=== PATIENT | female | born 1960 | race Hispanic/Latino ===

== ENCOUNTER 2021-01-04 02:02 | Emergency (ER) | payer SELFPAY ==
--- OUTSIDE RECORDS SUMMARY | 2021-01-04 02:04 | XMS REPORT | Continuity of Care Document ---
:1960 Author Organization [facility] t Address [address] [place] [address] Care Team Providers Name Role Phone Cindi Ascencio PTA Attending Clinician Unavailable Geraldo Arroyo PT Attending Clinician Unavailable Markus Chapman MD Attending Clinician Problems This patient has no known problems. Allergies, Adverse Reactions, Alerts This patient has no known allergies or adverse reactions. Medications This patient has no known medications. Procedures This patient has no known procedures. Encounters Start End Encounter Admission Attending Care Care Encounter Source Date/Time Date/Time Type Type Clinicians Facility Department ID 2020-12-23 2020-12-23 Ancillary THO Ascencio [id number] 10:30:34 11:15:04 Visit Stephania Malone [id number] Neeraj [id number] [facility] [phone] [facility] [address] [facility] 2020-12-16 2020-12-18 Ancillary Geraldo MIMARION [id number] 13:02:06 08:04:55 Visit Kira Arroyo [id number] Katie Pickard [id number] Pro[facility] [phone] [facility] [address] [facility] 2020-12-14 2020-12-14 Office THO Chapman [id number] 01 13:22:18 13:52:43 Visit Nitin KIRKLAND [id number] [facility] [id number] CENTER AT [phone] [address] Results This patient has no known results.
[2021-01-04] MEDS ORDERED: KETOROLAC 30 MG/ML INJ ONE (02:33)
[2021-01-04] MEDS ORDERED: ONDANSETRON 4 MG/2 ML VIAL ONE (02:45)
[2021-01-04] MEDS ORDERED: KETAMINE HCL 500 MG/5 ML VIAL ONE (02:45)
[2021-01-04] MEDS ORDERED: NA CHLORIDE 0.9% 1,000 ML ONE (02:46)
[2021-01-04] MEDS ORDERED: propofoL 200 MG/20 ML VIAL IV ONE (02:50)
[2021-01-04 03:10] LABS: Absolute Lymphocytes (CBC) 1.3 K/uL (0.7-4.9); Basophils % 0.2 % (0-1.3); Hematocrit 37.8 % (36.0-45.0); Lymphocytes % 6.5 % (15.3-44.8); MPV 10.8 fL (7.6-11.3); RBC Red Blood Cell Count 4.35 M/uL (3.86-4.86)
[2021-01-04 03:19] LABS: ALT/SGPT 14 U/L (12-78); AST/SGOT 27 U/L (15-37); Albumin 3.9 g/dL (3.4-5.0); Alkaline Phosphatase 87 U/L (45-117); BUN Blood Urea Nitrogen 11 mg/dL (7-18); Bicarbonate 27 mmol/L (21-32); Bilirubin Total 0.9 mg/dL (0.2-1.0); Glucose Level 135 mg/dL (74-106); Potassium 3.8 mmol/L (3.5-5.1); Protein, Total 7.7 g/dL (6.4-8.2); Sodium Level 135 mmol/L (136-145)
--- NOTE | 2021-01-04 03:52 | EDPHYS ---
Physician Documentation [facility] Name: Yomaira Duran Age: 60 yrs Sex: Female : 1960 Arrival Date: 01/04/2021 Time: 02:03 Bed 4 Private MD: ED Physician Alan Rosario Historical: - Allergies: 01/04 02:08 meloxicam; wh - PMHx: 02:08 Diabetes - NIDDM; Hypertension; Depression; wh - Immunization history:: Adult Immunizations unknown. - Immunization history: Last tetanus immunization: unknown. - Social history:: Smoking status: unknown. Vital Signs: 02:19 BP 155 / 82; Pulse 80; Resp 17; Pulse Ox 100% on R/A; rv 02:19 Temp 98.7(O); rv 03:14 BP 122 / 88; Pulse 69; Resp 14; Pulse Ox 100% on 2 lpm NC; rv 04:00 BP 146 / 78; Pulse 69; Resp 15; Pulse Ox 100% on R/A; rv 04:00 BP 119 / 67; Pulse 77; Resp 15; Pulse Ox 96% on R/A; rv 05:00 BP 117 / 80; Pulse 80; Resp 15; Pulse Ox 97% on R/A; rv Talha Coma Score: 02:07 Eye Response: spontaneous(4). Verbal Response: oriented(5). Motor Response: obeys wh commands(6). Total: 15. 04:00 Eye Response: spontaneous(4). Verbal Response: oriented(5). Motor Response: obeys rv commands(6). Total: 15. Trauma Score (Adult): 02:07 Eye Response: spontaneous(1); Verbal Response: oriented(1); Motor Response: obeys wh commands(2); Systolic BP: > 89 mm Hg(4); Respiratory Rate: 10 to 29 per min(4); Talha Score: 15; Trauma Score: 12 MDM: 02:06 Patient medically screened. 01/04 02:22 Order name: Alcohol Level; Complete Time: 03:27 01/04 02:22 Order name: CMP; Complete Time: 03:27 01/04 03:28 Interpretation: Normal except: NA 135; GLUC 135; CRE 0.47. 01/04 02:04 Order name: Shoulder Right (2 View) XRAY tw4 01/04 02:04 Order name: Ankle Left 2 View XRAY tw4 01/04 02:22 Order name: CBC with Diff tw4 01/04 03:28 Interpretation: Normal except: WBC 19.30; LYM% 6.5; RACHANA% 87.1; NEUT A 16.8. tw4 01/04 03:25 Order name: Manual Differential EDMS 01/04 02:04 Order name: CT Head C Spine tw4 01/04 02:04 Order name: IV Saline Lock; Complete Time: 02:14 tw4 01/04 02:04 Order name: Conscious Sedation; Complete Time: 02:20 tw4 Administered Medications: 02:20 Drug: Ketorolac 15 mg Route: IVP; Site: left antecubital; rv 03:15 Follow up: Response: No adverse reaction rv 02:40 Drug: Zofran (Ondansetron) 4 mg Route: IVP; Site: left antecubital; rv 03:15 Follow up: Response: No adverse reaction rv 02:43 Drug: Propofol 100 mg Route: IVP; Site: left antecubital; rv 03:15 Follow up: Response: No adverse reaction rv Disposition: 01/04/21 03:52 Discharged to Home. Impression: Dislocation of other parts of right shoulder girdle, Contusion of other part of head, Sprain of ankle. - Condition is Stable. - Discharge Instructions: Ankle Sprain, Contusion, Head Injury, Adult, [id number]. - Medication Reconciliation Form, Thank You Letter, Antibiotic Education, Prescription Opioid Use form. - Follow up: Private Physician; When: Upon discharge from the Emergency Department; Reason: Recheck today's complaints, Continuance of care, Re-evaluation by your physician. - Problem is new. - Symptoms have improved. Addendum: 02/05/2021 18:53 Addendum: Pt is a 60 year female that states that she fell and twisted her ankle and t w4 injured her right shoulder. Pt states that she is having difficulty moving her shoulder and has had difficulty walking. Pt states that she needs to ambulate with assistance. Pt admits to drinking heavily this evening. Addendum: ROS: ALL other systems negative except as marked. Ext: positive for deformity shoulder, decreased ROM. positive pain ankle left, decreased ROM. Addendum: PE: General:well developed well nourished pt in NAD HEENT: PERRLA,EOMI Chest: CTAB, nl BS CV:RRR, S1, S2 no murmurs no gallops Ab: ND,NT nl BS Ext: right shoulder deformity , decreased ROM, no pulse deficit. 19:04 Addendum: Procedure:pt underwent moderate sedation, propofol used, Reduction completed t w4 using traction manipulation Xray confirms reduction. Signatures: Dispatcher [employer] EDMS Radha Miller, RN RN Alan Rosario MD MD tw4 Rome Ybarra RN RN rv Corrections: (The following items were deleted from the chart) 01/04 05:57 03:52 01/04/2021 03:52 Discharged to Home. Impression: Dislocation of other parts of rv right shoulder girdle; Contusion of other part of head; Sprain of ankle. Condition is Stable. Forms are Medication Reconciliation Form, Thank You Letter, Antibiotic Education, Prescription Opioid Use. Follow up: Private Physician; When: Upon discharge from the Emergency Department; Reason: Recheck today's complaints, Continuance of care, Re-evaluation by your physician. Problem is new. Symptoms have improved. tw4
--- NOTE | 2021-01-04 03:52 | ER ---
Nurse's Notes [facility] Name: Yomaira Duran Age: 60 yrs Sex: Female : 1960 Arrival Date: 01/04/2021 Time: 02:03 Bed 4 Private MD: Diagnosis: Dislocation of other parts of right shoulder girdle;Contusion of other part of head;Sprain of ankle Presentation: 01/04 02:04 Chief complaint: Patient states: fell and rolled her left ankle and hit her right wh shoulder. Pt C/O right shoulder pain. Denies LOC and not taking blood thinners. Pt admitted to having alcohol. Care prior to arrival: None. Mechanism of Injury: Fall. Trauma event details: Injury occurred in the [facility]. 02:04 Acuity: ZAHIRA 3 02:04 Method Of Arrival: Wheelchair 02:07 Coronavirus screen: Client denies travel out of the [place] in the last 14 days. Ebola wh Screen: Patient negative for fever greater than or equal to 101.5 degrees Fahrenheit, and additional compatible Ebola Virus Disease symptoms Patient denies exposure to infectious person. Initial Sepsis Screen: Does the patient meet any 2 criteria?. Risk Assessment: Do you want to hurt yourself or someone else? Patient reports no desire to harm self or others. Onset of symptoms was January 04, 2021. 02:18 Initial Sepsis Screen: Does the patient have a suspected source of infection? No. rv Patient's initial sepsis screen is negative. Trauma Activation: Physician: ED Physician; Name: ; Notified At: 02:05; Arrived At: Physician: General Surgeon; Name: ; Notified At: 02:05; Arrived At: Physician: Radiology; Name: ; Notified At: 02:05; Arrived At: Physician: Respiratory; Name: ; Notified At: 02:05; Arrived At: Physician: Lab; Name: ; Notified At: 02:05; Arrived At: Historical: - Allergies: 02:08 meloxicam; wh - PMHx: 02:08 Diabetes - NIDDM; Hypertension; Depression; wh - Immunization history:: Adult Immunizations unknown. - Immunization history: Last tetanus immunization: unknown. - Social history:: Smoking status: unknown. Screenin:04 Abuse screen: Denies threats or abuse. Nutritional screening: No deficits noted. wh Tuberculosis screening: No symptoms or risk factors identified. Fall Risk None identified. Primary Survey: 02:05 NO uncontrolled hemorrhage observed. A: The patient is alert. Airway: patent. wh Breathing/Chest: Respiratory pattern: regular, Respiratory effort: spontaneous, unlabored, Chest inspection: symmetrical rise and fall of the chest. Circulation: Skin color: pink. Disability Alert. Exposure/Environment: All clothing and personal items were removed. Forensic evidence collection is not deemed to be indicated at this time. Items placed in patient belonging bag. Obvious injury(ies) are noted at this time: deformity in right shloulder. 03:15 Reassessment Breathing/Chest Respiratory pattern Regular. rv Assessment: 02:03 Reassessment: [facility] [phone]. 02:06 General: Appears in no apparent distress. uncomfortable, Behavior is listless, Smells wh of alcohol. Pain: Complains of pain in right shoulder. Neuro: Level of Consciousness is awake, alert, obeys commands, Oriented to person, place, time, situation. Cardiovascular: Capillary refill < 3 seconds Patient's skin is warm and dry. Respiratory: Airway is patent Respiratory effort is even, unlabored, Respiratory pattern is regular, symmetrical. GI: Abdomen is non-distended. : No signs and/or symptoms were reported regarding the genitourinary system. EENT: No signs and/or symptoms were reported regarding the EENT system. Derm: Skin is intact. Musculoskeletal: Range of motion: limited in right shoulder. 02:19 Reassessment: Family member gave verbal consent for conscious sedation. ea 05:55 Reassessment: PATIENT IS ALERT AWAKE AND COHERENT. WAS ABLE TO STAND UP ON HER OWN FROM rv THE STRETCHER AND TRANSFERRED TO WHEELCHAIR. DENIES PAIN AT THE MOMENT. DISCHARGED. Vital Signs: 02:19 BP 155 / 82; Pulse 80; Resp 17; Pulse Ox 100% on R/A; rv 02:19 Temp 98.7(O); rv 03:14 BP 122 / 88; Pulse 69; Resp 14; Pulse Ox 100% on 2 lpm NC; rv 04:00 BP 146 / 78; Pulse 69; Resp 15; Pulse Ox 100% on R/A; rv 04:00 BP 119 / 67; Pulse 77; Resp 15; Pulse Ox 96% on R/A; rv 05:00 BP 117 / 80; Pulse 80; Resp 15; Pulse Ox 97% on R/A; rv Bryan Coma Score: 02:07 Eye Response: spontaneous(4). Verbal Response: oriented(5). Motor Response: obeys wh commands(6). Total: 15. 04:00 Eye Response: spontaneous(4). Verbal Response: oriented(5). Motor Response: obeys rv commands(6). Total: 15. Trauma Score (Adult): 02:07 Eye Response: spontaneous(1); Verbal Response: oriented(1); Motor Response: obeys wh commands(2); Systolic BP: > 89 mm Hg(4); Respiratory Rate: 10 to 29 per min(4); Talha Score: 15; Trauma Score: 12 ED Course: 02:03 Patient arrived in ED. tw4 02:04 Patient maintains SpO2 saturation greater than 95% on room air. Thermoregulation: warm blanket given to patient. 02:05 Triage completed. wh 02:06 Alan Rosario MD is Attending Physician. tw4 02:13 Patient has correct armband on for positive identification. Bed in low position. Call light in reach. 02:13 Arm band placed on right wrist. Patient placed in an exam room, on a stretcher, on pulse oximetry. 02:14 Rome Ybarra, RN is Primary Nurse. rv 02:18 Inserted saline lock: 20 gauge in left antecubital area, using aseptic technique. rv 02:38 Ankle Left 2 View XRAY In Process Unspecified. EDMS 02:38 Shoulder Right (2 View) XRAY In Process Unspecified. EDMS 02:52 Assist provider with reduction of right shoulder using manipulation, Set up for rv procedure. Performed by Alan Rosario MD Immobilized with sling, Patient tolerated well. 03:12 CT Head C Spine In Process Unspecified. EDMS 04:05 IV discontinued, intact, bleeding controlled, No redness/swelling at site. Pressure rv dressing applied. Administered Medications: 02:20 Drug: Ketorolac 15 mg Route: IVP; Site: left antecubital; rv 03:15 Follow up: Response: No adverse reaction rv 02:40 Drug: Zofran (Ondansetron) 4 mg Route: IVP; Site: left antecubital; rv 03:15 Follow up: Response: No adverse reaction rv 02:43 Drug: Propofol 100 mg Route: IVP; Site: left antecubital; rv 03:15 Follow up: Response: No adverse reaction rv Output: 04:05 Urine: 0ml; Total: 0ml. rv Outcome: 03:52 Discharge ordered by MD. meyer 04:05 Discharged to home via wheelchair. rv 04:05 Condition: improved 04:05 Patient's length of stay in the Emergency Department was greater than 2 hours. waiting for ridePatient's length of stay extended due to 04:05 Discharge instructions given to patient, Instructed on discharge instructions, follow rv up and referral plans. Demonstrated understanding of instructions, follow-up care. 05:57 Patient left the ED. rv Signatures: Dispatcher [employer] EDMS Elodia Michelle RN RN ea Habalo, Winsy, RN RN wh Wadley, Terrence, MD MD twRome Tineo RN RN rv
[2021-01-04 04:02] LABS: Blood Morphology Comment NOT SEEN (NOT SEEN); Platelet Estimate ADEQ
--- NOTE | 2021-01-04 09:06 | RAD REPORT ---
EXAM DESCRIPTION: RAD - Ankle Left 2 View - 01/04/2021 2:38 am CLINICAL HISTORY: PAIN COMPARISON: No comparisons FINDINGS: Two-view portable left ankle examination performed. Lateral view has significant motion de gradation. No gross fracture deformity is seen. Fracture at the tip of the fibula cannot be excluded. A fracture in this location would not likely alter medical management. No other findings concerning for fracture on this limited examination. No joint effusion seen. No joint space narrowing. Lateral soft tissue swelling is present. IMPRESSION: No gross fracture deformity on this limited two-view ankle examination. Small fracture at the tip of the fibula cannot be excluded. This type of fracture would not likely al ter medical management.
--- NOTE | 2021-01-04 09:11 | RAD REPORT ---
EXAM DESCRIPTION: Shoulder Right 2 View - 01/04/2021 2:39 am CLINICAL HISTORY: fall, right shoulder pain COMPARISON: <Comparisons> TECHNIQUE: Internal and external rotation views of the right shoulder were obtained. FINDINGS: Dislocation of the humeral head is present medial and inferior to the bony glenoid. This i s typical for anterior dislocation. No fracture deformity seen. No AC joint abnormality identified. IMPRESSION: Anterior dislocation right humerus. No fracture identifiable.
--- NOTE | 2021-01-04 16:46 | RAD REPORT ---
EXAM DESCRIPTION: CT - [id number] - 01/04/2021 3:12 am CLINICAL HISTORY: PAIN COMPARISON: None. TECHNIQUE: CT Head and Cervical spine WO contrast on 01/04/2021 2:04 AM CDT This exam was performed according to our departmental dose-optimization program, which includes autom ated exposure control, adjustment of the mA and/or kV according to patient size and/or use of iterati ve reconstruction technique. FINDINGS: Brain: There is no acute hemorrhage, mass effect or midline shift. Sena-white differentiat ion is preserved. There is no hydrocephalus. There is no significant volume loss for age. The calvarium is intact. Orbits and globes are unremarkable. The paranasal sinuses are clear. Mastoid air cells are clear. Cervical Spine: There is no acute fracture. Alignment is anatomic. Disc spaces are maintained. Vertebral body heights are preserved. Soft tissues are unremarkable. IMPRESSION: No acute postraumatic findings. Electronically signed by: Satnam aPdilla MD 01/04/2021 3:25 AM CDT Due to temporary technical issues with the PACS/Fluency reporting system, reports are being signed by the in house radiologists without review as a courtesy to insure prompt reporting. The interpreting radiologist is fully responsible for the content of the report.
[2021-01-04 19:31] VITALS: TEMP 98.7
[2021-01-04 19:36] VITALS: BP 117/80; O2SAT 97
== END 2021-01-04 05:57 | disposition home or self-care (01) ==
LOC: ER 02:02
DX: S43.394A Dislocation of other parts of right shoulder girdle, initial encounter (principal); S93.409A Sprain of unspecified ligament of unspecified ankle, initial encounter; S00.83XA Contusion of other part of head, initial encounter; X58.XXXA Exposure to other specified factors, initial encounter; E11.9 Type 2 diabetes mellitus without complications; I10 Essential (primary) hypertension; F32.9 Major depressive disorder, single episode, unspecified
CPT/HCPCS: 36415; 70450; 72125; 80053; 80320; 85025; 96374; 96375; 99285; J2405; J2704; J7030

== ENCOUNTER 2021-02-19 16:04 | Emergency (ER) | payer OTHER, SELFPAY ==
--- OUTSIDE RECORDS SUMMARY | 2021-02-19 16:07 | XMS REPORT | Continuity of Care Document ---
:1960 Author Organization [facility] t Address [address] [place] [address] Care Team Providers Name Role Phone Cindi [...] Department ID 2020-12-23 2020-12-23 Ancillary THO Ascencio [id number] 10:30:34 11:15:04 Visit Stephania Malone [id number] Neeraj [id number] [facility] [phone] [facility] [address] [facility] 2020-12-16 2020-12-18 Ancillary Geraldo [facility] [id number] 13:02:06 08:04:55 Visit Kira Arroyo [id number] Katie Pickard [id number] [facility] [phone] [facility] [address] 2020-12-14 2020-12-14 Office THO Chapman [id number] 01 13:22:18 13:52:43 Visit Nitin KIRKLAND [id number] [facility] [id number] CENTER AT [phone] [address] Results This patient has no known results.
[2021-02-19] MEDS ORDERED: ONDANSETRON 4 MG/2 ML VIAL ONE (16:31)
[2021-02-19] MEDS ORDERED: FENTANYL CITR 100 MCG/2 ML ONE (16:31)
[2021-02-19] MEDS ORDERED: propofoL 200 MG/20 ML VIAL IV ONE (17:05)
[2021-02-19] MEDS ORDERED: NA CHLORIDE 0.9% 500 ML ONE (17:05)
--- NOTE | 2021-02-19 17:07 | RAD REPORT ---
EXAM DESCRIPTION: RAD - Shoulder Right 2 View - 02/19/2021 4:32 pm CLINICAL HISTORY: Right shoulder pain FINDINGS: No fracture seen. Anterior humeral dislocation present
--- NOTE | 2021-02-19 17:30 | RAD REPORT ---
EXAM DESCRIPTION: RAD - Shoulder Right 2 View - 02/19/2021 5:25 pm CLINICAL HISTORY: Right shoulder dislocation FINDINGS: Previously described humeral dislocation has been reduced
--- NOTE | 2021-02-19 17:45 | ER ---
Nurse's Notes [facility] Name: Yomaira Duran Age: 60 yrs Sex: Female : 1960 Arrival Date: 02/19/2021 Time: 16:05 Bed 2 Private MD: Diagnosis: Anterior dislocation of right humerus Presentation: 02/19 16:09 Chief complaint: Slipped on wet patio, c/o severe right shoulder pain. Coronavirus hb screen: At this time, the client does not indicate any symptoms associated with coronavirus-19. Ebola Screen: No symptoms or risks identified at this time. Initial Sepsis Screen: Does the patient meet any 2 criteria? HR > 90 bpm. No. Patient's initial sepsis screen is negative. Does the patient have a suspected source of infection? No. Patient's initial sepsis screen is negative. Risk Assessment: Do you want to hurt yourself or someone else? Patient reports no desire to harm self or others. Onset of symptoms was February 19, 2021. 16:09 Method Of Arrival: Wheelchair hb 16:09 Acuity: ZAHIRA 2 hb Triage Assessment: 16:10 General: Appears distressed, uncomfortable, obese, unkempt, Behavior is appropriate for bp age, agitated, anxious. Pain: Complains of pain in right arm. EENT: No deficits noted. Neuro: No deficits noted. Cardiovascular: No deficits noted. Respiratory: No deficits noted. GI: No signs and/or symptoms were reported involving the gastrointestinal system. : No signs and/or symptoms were reported regarding the genitourinary system. Derm: No deficits noted. Musculoskeletal: Bony deformity noted of anterior aspect of right shoulder. Historical: - Allergies: 16:10 meloxicam; hb - Immunization history:: Adult Immunizations up to date. - Social history:: Smoking status: unknown. Screenin:21 Abuse screen: Denies threats or abuse. Nutritional screening: No deficits noted. tw2 Tuberculosis screening: No symptoms or risk factors identified. Fall Risk Fall in past 12 months (25 points). Secondary diagnosis (15 points) impaired mobility. Assessment: 16:22 Reassessment: xray at bedside at this time. tw2 16:55 Reassessment: PT UNABLE TO CONSENT TO CONSCIOUS SEDATION, RULED TO BE EMERGENT. PT bp PLACED ON HARBOR DEPARTMENT MANAGER, NIBP AND CONTINUOUS SPO2. OXYGEN AND SUCTION AT B/S, CRASH CART AVAILABLE. 17:05 Reassessment: REDUCTION COMPLETE. POST REDUCTION FILMS PENDING. bp 17:53 Reassessment: PT D/C HOME AMBULATORY, DX WITH R SHOULDER DISLOCATION. bp Vital Signs: 16:09 BP 156 / 86; Pulse 100; Resp 16; Temp 97.7; Pulse Ox 100% on R/A; Pain 10/10; hb 17:00 BP 140 / 74; Pulse 51; Resp 17; Pulse Ox 100% on R/A; tw2 17:53 BP 155 / 98; Pulse 60; Resp 16; Temp 97.9; Pulse Ox 100% ; bp ED Course: 16:05 Patient arrived in ED. hb 16:05 Bed in low position. Call light in reach. Side rails up X 1. Pulse ox on. NIBP on. tw2 Notified Nurse Practitioner and/or Physician Operator Technician of. Warm blanket given. 16:06 Reid Tran PA is [facility]. jr8 16:06 Imer Gomez MD is Attending Physician. jr8 16:10 Triage completed. hb 16:10 Arm band placed on. hb 16:15 Inserted saline lock: 20 gauge in left forearm, using aseptic technique. tw2 16:33 XRAY Shoulder RIGHT 2 view In Process Unspecified. EDMS 16:55 Assist provider with reduction of right shoulder using manipulation, Set up for bp procedure. Performed by Reid MARTINEZ Immobilized with sling, Patient tolerated well. 16:58 Nitin Perez, TEA is Primary Nurse. bp 17:44 Ashok Livingston MD is Referral Physician. jr8 17:56 IV discontinued, intact, bleeding controlled, No redness/swelling at site. Pressure bp dressing applied. 22:07 RAD In Process Unspecified. EDMS Administered Medications: 16:15 Drug: fentaNYL (PF) 75 mcg Route: IVP; Site: left forearm; bp 17:05 Follow up: Response: Pain is decreased bp 16:15 Drug: Zofran (Ondansetron) 4 mg Route: IVP; Site: left forearm; bp 17:06 Follow up: Response: Nausea is decreased bp 16:55 Drug: Propofol 60 mg Route: IVP; Site: left forearm; bp 17:57 Follow up: Response: Pain is decreased bp Outcome: 17:44 Discharge ordered by MD. ramirez 17:56 Discharged to home ambulatory. bp 17:56 Condition: stable 17:56 Discharge instructions given to patient, Instructed on discharge instructions, follow up and referral plans. Demonstrated understanding of instructions, follow-up care. 17:57 Patient left the ED. bp Signatures: Dispatcher [employer] EDMS Reid Tran PA PA jr8 Shena Hamilton RN RN Preeti Conrad RN RN 2 Nitin Perez RN RN bp
--- NOTE | 2021-02-19 17:45 | EDPHYS ---
Physician Documentation [facility] Name: Yomaira Duran Age: 60 yrs Sex: Female : 1960 Arrival Date: 02/19/2021 Time: 16:05 Bed 2 Private MD: ED Physician Imer Gomez HPI: 02/19 16:59 This 60 yrs old Female presents to ER via Wheelchair with complaints of Fall jr8 Injury. 16:59 Details of fall: The patient fell from an upright position, while standing. Onset: The jr8 symptoms/episode began/occurred acutely, today. Associated injuries: The patient sustained right arm. Severity of symptoms: At their worst the symptoms were moderate, in the emergency department the symptoms are unchanged. The patient has experienced a previous episode. The patient has not recently seen a physician. Patient stated that she fell onto right shoulder off of porch when she slipped in the rain. Denies hitting head or neck. Denies LOC or pain to anywhere else at this time . Historical: - Allergies: 16:10 meloxicam; hb - Immunization history:: Adult Immunizations up to date. - Social history:: Smoking status: unknown. ROS: 16:59 Eyes: Negative for injury, pain, redness, and discharge, ENT: Negative for injury, jr8 pain, and discharge, Neck: Negative for injury, pain, and swelling, Cardiovascular: Negative for chest pain, palpitations, and edema, Respiratory: Negative for shortness of breath, cough, wheezing, and pleuritic chest pain, Abdomen/GI: Negative for abdominal pain, nausea, vomiting, diarrhea, and constipation, Back: Negative for injury and pain, Skin: Negative for injury, rash, and discoloration, Neuro: Negative for headache, weakness, numbness, tingling, and seizure. 16:59 MS/extremity: Positive for decreased range of motion, deformity, pain, tenderness, of the right shoulder . Exam: 16:59 Head/Face: Normocephalic, atraumatic. Eyes: Pupils equal round and reactive to light, jr8 extra-ocular motions intact. Lids and lashes normal. Conjunctiva and sclera are non-icteric and not injected. Cornea within normal limits. Periorbital areas with no swelling, redness, or edema. ENT: Nares patent. No nasal discharge, no septal abnormalities noted. Tympanic membranes are normal and external auditory canals are clear. Oropharynx with no redness, swelling, or masses, exudates, or evidence of obstruction, uvula midline. Mucous membranes moist. Neck: Trachea midline, no thyromegaly or masses palpated, and no cervical lymphadenopathy. Supple, full range of motion without nuchal rigidity, or vertebral point tenderness. No Meningismus. Chest/axilla: Normal chest wall appearance and motion. Nontender with no deformity. No lesions are appreciated. Cardiovascular: Regular rate and rhythm with a normal S1 and S2. No gallops, murmurs, or rubs. Normal PMI, no JVD. No pulse deficits. Respiratory: Lungs have equal breath sounds bilaterally, clear to auscultation and percussion. No rales, rhonchi or wheezes noted. No increased work of breathing, no retractions or nasal flaring. Abdomen/GI: Soft, non-tender, with normal bowel sounds. No distension or tympany. No guarding or rebound. No evidence of tenderness throughout. Back: No spinal tenderness. No costovertebral tenderness. Full range of motion. Skin: Warm, dry with normal turgor. Normal color with no rashes, no lesions, and no evidence of cellulitis. MS/ Extremity: Pulses equal, no cyanosis. Neurovascular intact. Full, normal range of motion. Neuro: Awake and alert, GCS 15, oriented to person, place, time, and situation. Cranial nerves II-XII grossly intact. Motor strength 5/5 in all extremities. Sensory grossly intact. 16:59 Constitutional: The patient appears alert, awake, in obvious pain, uncomfortable. Vital Signs: 16:09 BP 156 / 86; Pulse 100; Resp 16; Temp 97.7; Pulse Ox 100% on R/A; Pain 10/10; hb 17:00 BP 140 / 74; Pulse 51; Resp 17; Pulse Ox 100% on R/A; tw2 17:53 BP 155 / 98; Pulse 60; Resp 16; Temp 97.9; Pulse Ox 100% ; bp Procedures: 17:03 Reduction: of the right shoulder, using manipulation, Immobilized with sling, Patient james tolerated well. Post reduction film - reveals normal alignment. Moderate sedation: Pre-procedure assessment: the patient has been NPO an unknown amount of time prior to arrival, ASA physical classification: II - mild/mod systemic disease that does not interfere with daily routines, Airway assessment: able to hyperextend neck, able to maintain airway, can open mouth without difficulty, Mallampati classification of tongue size: III - uvula can be visualized, but faucial pillars and soft palate are not appreciated, Monitoring during procedure: panel monitor, continuous pulse oximetry, nurse at bedside at all times, Medications employed: propofol, Post-procedure assessment: the patient is moderately sedated, Yo sedation score: 5 - sluggish response to a light glabellar tap, Respiratory status: requires supplemental oxygen to maintain acceptable oxygen saturation, a reversal agent was not used. MDM: 16:06 Patient medically screened. jr8 17:43 Data reviewed: vital signs, nurses notes, radiologic studies, plain films. Data jr8 interpreted: Pulse oximetry: on room air is 100 %. Interpretation: normal. Counseling: I had a detailed discussion with the patient and/or guardian regarding: the historical points, exam findings, and any diagnostic results supporting the discharge/admit diagnosis, radiology results, the need for outpatient follow up, a orthopedic surgeon, to return to the emergency department if symptoms worsen or persist or if there are any questions or concerns that arise at home. 02/19 16:10 Order name: XRAY Shoulder RIGHT 2 view; Complete Time: 17:43 jr8 02/19 16:57 Order name: Shoulder Right (2 View) XRAY eb 02/19 17:31 Order name: RAD EDMS 02/19 16:10 Order name: IV; Complete Time: 16:16 jr8 Administered Medications: 16:15 Drug: fentaNYL (PF) 75 mcg Route: IVP; Site: left forearm; bp 17:05 Follow up: Response: Pain is decreased bp 16:15 Drug: Zofran (Ondansetron) 4 mg Route: IVP; Site: left forearm; bp 17:06 Follow up: Response: Nausea is decreased bp 16:55 Drug: Propofol 60 mg Route: IVP; Site: left forearm; bp 17:57 Follow up: Response: Pain is decreased bp Disposition: 02/20 08:00 Co-signature as Attending Physician, Imer Gomez MD I agree with the assessment and fletcher plan of care. Disposition: 02/19/21 17:44 Discharged to Home. Impression: Anterior dislocation of right humerus. - Condition is Stable. - Discharge Instructions: Shoulder Dislocation. - Medication Reconciliation Form, Thank You Letter, Antibiotic Education, Prescription Opioid Use form. - Follow up: Ashok Livingston MD; When: 5 - 6 days; Reason: Recheck today's complaints, Continuance of care, Re-evaluation by your physician. - Problem is new. - Symptoms have improved. Signatures: Dispatcher [employer] EDMS Imer Gomez MD MD cha Roszak, Josh, PA PA jr8 Shena Hamilton, RN RN Nitin Perez RN RN bp Corrections: (The following items were deleted from the chart) 02/19 17:02 16:59 Patient stated that she fell onto right shoulder off of porch when she slipped in jr8 the rain . jr8 17:57 17:44 02/19/2021 17:44 Discharged to Home. Impression: Anterior dislocation of right bp humerus. Condition is Stable. Forms are Medication Reconciliation Form, Thank You Letter, Antibiotic Education, Prescription Opioid Use. Follow up: Ashok Livingston; When: 5 - 6 days; Reason: Recheck today's complaints, Continuance of care, Re-evaluation by your physician. Problem is new. Symptoms have improved. jr8
[2021-02-19 18:21] VITALS: O2SAT 100
[2021-02-19 18:24] VITALS: BP 155/98; TEMP 97.9
== END 2021-02-19 17:57 | disposition home or self-care (01) ==
LOC: ER 16:04
PROC: 0RSJXZZ Reposition Right Shoulder Joint, External Approach (ICD-10-PCS; principal; 2021-02-19)
DX: S43.014A Anterior dislocation of right humerus, initial encounter (principal); W13.8XXA Fall from, out of or through other building or structure, initial encounter
CPT/HCPCS: 73030 ×2; 96375; 96374; 99285; 23650; J2704; J3010; J7040; J2405

== ENCOUNTER 2021-04-17 04:47 | Emergency (ER) | payer OTHER ==
--- OUTSIDE RECORDS SUMMARY | 2021-04-17 04:50 | XMS REPORT | Continuity of Care Document ---
:1960 Author Organization [facility] t Address [address] [place] [address] Care Team Providers Name Role Phone Luis Daniel STERN Attending Clinician Markus Chapman MD Attending Clinician Cindi Ascencio PTA Attending Clinician Unavailable Geraldo Arroyo PT Attending Clinician Unavailable Problems This patient has no known problems. Allergies, Adverse Reactions, Alerts This patient has no known allergies or adverse reactions. Medications This patient has no known medications. Procedures This patient has no known procedures. Encounters Start End Encounter Admission Attending Care Care Encounter Source Date/Time Date/Time Type Type Clinicians Facility Department ID 2021-04-14 2021-04-14 Emergency THO [place] [id number] 12:52:00 15:38:00 [facility] [id number] League [id number] [place] [phone] ([facility]) 2021-03-04 2021-03-04 Telephone THO Chapman [id number] 00:00:00 00:00:00 Nitin KIRKLAND [id number] CARE [id number] [facility] AT [phone] [address] 2020-12-23 2020-12-23 Ancillary THO Ascencio [id number] 10:30:34 11:15:04 Visit Stephania Malone [id number] [place] [id number] Professio [phone] [facility] [address] 2020-12-16 2020-12-18 Ancillary Geraldo [facility] [id number] 13:02:06 08:04:55 Visit Kira Arroyo [id number] Katie [place] [id number] Professio [phone] [facility] [address] [facility] 2020-12-14 2020-12-14 Office Ari [facility] [id number] 13:22:18 13:52:43 Visit Nitin KIRKLAND [id number] CARE [id number] CENTER AT [phone] DAVIDA BALL Results This patient has no known results.
[2021-04-17] MEDS ORDERED: MORPHINE 4 MG/ML SYR ONE ×2 (05:42→06:40)
[2021-04-17] MEDS ORDERED: ONDANSETRON 4 MG/2 ML VIAL ONE (05:42)
[2021-04-17] MEDS ORDERED: MIDAZOLAM HCL 2 MG/2 ML INJ ONE (06:39)
--- NOTE | 2021-04-17 07:23 | EDPHYS ---
Physician Documentation [facility] Name: Yomaira Duran Age: 60 yrs Sex: Female : 1960 Arrival Date: 04/17/2021 Time: 04:50 Bed 5 Private MD: Caesar Nuno ED Physician Ronal Agustin HPI: 04/17 06:09 This 60 yrs old Female presents to ER via Wheelchair with complaints of Fall mh7 Injury, Dislocated shoulder. 06:09 Details of fall: The patient fell from an upright position, while walking. Onset: The mh7 symptoms/episode began/occurred just prior to arrival, today. Associated injuries: The patient sustained right shoulder, decreased range of motion, painful injury. Severity of symptoms: At their worst the symptoms were moderate, earlier today, in the emergency department the symptoms are unchanged. The patient has experienced similar episodes in the past, several times. Historical: - Allergies: 05:02 meloxicam; em 05:11 meloxicam; ea - PMHx: 05:02 Diabetes - NIDDM; Depression; Hypertension; em 05:11 Hypertension; Diabetes - NIDDM; Depression; ea - PSHx: 05:02 Knee surgery; ; em - Immunization history:: Adult Immunizations up to date, Adult Immunizations up to date. - Social history:: Smoking status: unknown Smoking status: Patient denies any tobacco usage or history of. ROS: 06:09 Constitutional: Negative for fever, chills, and weight loss, Eyes: Negative for injury, mh7 pain, redness, and discharge, ENT: Negative for injury, pain, and discharge, Neck: Negative for injury, pain, and swelling, Cardiovascular: Negative for chest pain, palpitations, and edema, Respiratory: Negative for shortness of breath, cough, wheezing, and pleuritic chest pain, Abdomen/GI: Negative for abdominal pain, nausea, vomiting, diarrhea, and constipation, Back: Negative for injury and pain, : Negative for injury, bleeding, discharge, and swelling, Skin: Negative for injury, rash, and discoloration, Neuro: Negative for headache, weakness, numbness, tingling, and seizure, Psych: Negative for depression, anxiety, suicide ideation, homicidal ideation, and hallucinations, Allergy/Immunology: Negative for hives, rash, and allergies, Endocrine: Negative for neck swelling, polydipsia, polyuria, polyphagia, and marked weight changes, Hematologic/Lymphatic: Negative for swollen nodes, abnormal bleeding, and unusual bruising. Exam: 06:09 Constitutional: This is a well developed, well nourished patient who is awake, alert, mh7 and in no acute distress. Head/Face: Normocephalic, atraumatic. Eyes: Pupils equal round and reactive to light, extra-ocular motions intact. Lids and lashes normal. Conjunctiva and sclera are non-icteric and not injected. Cornea within normal limits. Periorbital areas with no swelling, redness, or edema. Neck: Trachea midline, no thyromegaly or masses palpated, and no cervical lymphadenopathy. Supple, full range of motion without nuchal rigidity, or vertebral point tenderness. No Meningismus. Chest/axilla: Normal chest wall appearance and motion. Nontender with no deformity. No lesions are appreciated. Cardiovascular: Regular rate and rhythm with a normal S1 and S2. No gallops, murmurs, or rubs. Normal PMI, no JVD. No pulse deficits. Respiratory: Lungs have equal breath sounds bilaterally, clear to auscultation and percussion. No rales, rhonchi or wheezes noted. No increased work of breathing, no retractions or nasal flaring. Abdomen/GI: Soft, non-tender, with normal bowel sounds. No distension or tympany. No guarding or rebound. No evidence of tenderness throughout. Back: No spinal tenderness. No costovertebral tenderness. Full range of motion. Skin: Warm, dry with normal turgor. Normal color with no rashes, no lesions, and no evidence of cellulitis. 06:09 Neuro: Awake and alert, GCS 15, oriented to person, place, time, and situation. Cranial nerves II-XII grossly intact. Motor strength 5/5 in all extremities. Sensory grossly intact. Cerebellar exam normal. Normal gait. Psych: Awake, alert, with orientation to person, place and time. Behavior, mood, and affect are within normal limits. 06:09 Musculoskeletal/extremity: Extremities: noted in the right shoulder: decreased ROM, pain, tenderness, ROM: limited active range of motion, in the right shoulder, limited passive range of motion, in the right shoulder, Circulation is intact in all extremities. Sensation intact. Compartment Syndrome exam of affected extremity: is normal. no numbness, no tingling, no sensation deficit, no palor, no weak pulses, Joints: the right shoulder displays limited range of motion, pain at rest, painful range of motion, tenderness, Weight bearing: able to fully bear weight, without difficulty, Tendon exam: specific tendon testing normal through active and passive range of motion Vital Signs: 05:00 BP 165 / 105; Pulse 92; Resp 16; Temp 97.7; Pulse Ox 99% on R/A; Weight 61.23 kg; em Height 4 ft. 8 in. (142.24 cm); Pain 10/10; 05:58 BP 142 / 83; Pulse 79; Resp 16 S; Pulse Ox 98% on R/A; Pain 8/10; bb 07:00 BP 125 / 74; Pulse 70; Resp 20; Pulse Ox 95% on R/A; kg 07:36 BP 127 / 89; Pulse 77; Resp 20; Pulse Ox 96% on R/A; kg 05:00 Body Mass Index 30.27 (61.23 kg, 142.24 cm) em Procedures: 07:23 Reduction: of the right shoulder, using manipulation, flexion, Immobilized with sling, [facility] Patient tolerated well. Post reduction film - reveals normal alignment. MDM: 07:18 Differential diagnosis: abrasion, contusion, fracture, dislocation. Data reviewed: [facility] vital signs, nurses notes, radiologic studies, plain films. Counseling: I had a detailed discussion with the patient and/or guardian regarding: the historical points, exam findings, and any diagnostic results supporting the discharge/admit diagnosis, radiology results, the need for outpatient follow up, to return to the emergency department if symptoms worsen or persist or if there are any questions or concerns that arise at home. Response to treatment: the patient's symptoms have resolved after treatment, the patient's blood pressure is in an acceptable range, mental status has returned to baseline, the patient no longer shows bradycardia, the patient is not short of breath, the patient is not tachycardic, the patient's pain is gone, the patient's temperature has normalized. 07:22 Patient medically screened. [facility] 04/17 04:58 Order name: XRAY Shoulder RIGHT 2 view ea 04/17 06:25 Order name: Shoulder Right (2 View) XRAY [facility] 04/17 07:23 Order name: Sling; Complete Time: 07:37 [facility] Administered Medications: 05:24 Drug: morphine 4 mg Route: IVP; Site: left forearm; ea 06:01 Follow up: Response: No adverse reaction; Pain is decreased bb 06:01 Follow up: Response: RASS: Restless (+1) bb 05:24 Drug: Zofran (Ondansetron) 4 mg Route: IVP; Site: left forearm; ea 06:01 Follow up: Response: No adverse reaction bb 06:20 Drug: morphine 4 mg Route: IVP; Site: right forearm; em 07:37 Follow up: Response: No adverse reaction; Marked relief of symptoms kg 06:22 Drug: Versed (midazolam) 2 mg Route: IVP; Site: left forearm; em 07:37 Follow up: Response: No adverse reaction; Marked relief of symptoms kg Disposition: 04/17/21 07:22 Discharged to Home. Impression: Shoulder Dislocation, Right. - Condition is Stable. - Discharge Instructions: Shoulder Dislocation, [id number]. - Medication Reconciliation Form, Thank You Letter, Antibiotic Education, Prescription Opioid Use form. - Follow up: Private Physician; When: 2 - 3 days; Reason: Worsening of condition, Recheck today's complaints, Continuance of care, Re-evaluation by your physician. Follow up: Ashok Livingston MD; When: 2 - 3 days; Reason: Worsening of condition, Recheck today's complaints. - Problem is an acute exacerbation. - Symptoms have improved. Signatures: Dispatcher [employer] EDDevin Pineda RN Mariela Joy RN RN bb Antunez, Elena, RN RN ea Holmes, Maurice, MD MD [facility] Angela Elam RN RN kg Corrections: (The following items were deleted from the chart) 09:02 07:22 04/17/2021 07:22 Discharged to Home. Impression: Shoulder Dislocation, Right. kg Condition is Stable. Forms are Medication Reconciliation Form, Thank You Letter, Antibiotic Education, Prescription Opioid Use. Follow up: Private Physician; When: 2 - 3 days; Reason: Worsening of condition, Recheck today's complaints, Continuance of care, Re-evaluation by your physician. Follow up: Ashok Livingston; When: 2 - 3 days; Reason: Worsening of condition, Recheck today's complaints. Problem is an acute exacerbation. Symptoms have improved. mh7
--- NOTE | 2021-04-17 07:23 | ER ---
Nurse's Notes [facility] Name: Yomaira Duran Age: 60 yrs Sex: Female : 1960 Arrival Date: 04/17/2021 Time: 04:50 Bed 5 Private MD: Caesar Nuno Diagnosis: Shoulder Dislocation, Right Presentation: 04/17 04:59 Onset of symptoms was April 17, 2021. ea 05:00 Chief complaint: Patient states: slipped and fell, dislocated right shoulder, obvious em deformity noted to right shoulder, pt states this is her 4th dislocation, was seen by ortho. 3 days ago. Coronavirus screen: Client denies travel out of the [place] in the last 14 days. Ebola Screen: Patient negative for fever greater than or equal to 101.5 degrees Fahrenheit, and additional compatible Ebola Virus Disease symptoms Patient denies exposure to infectious person. Patient denies travel to an Ebola-affected area in the 21 days before illness onset. No symptoms or risks identified at this time. Initial Sepsis Screen: Does the patient meet any 2 criteria? HR > 90 bpm. Does the patient have a suspected source of infection? No. Patient's initial sepsis screen is negative. Risk Assessment: Do you want to hurt yourself or someone else? Patient reports no desire to harm self or others. 05:00 Method Of Arrival: Wheelchair em 05:00 Acuity: ZAHIRA 3 em Historical: - Allergies: 05:02 meloxicam; em 05:11 meloxicam; ea - PMHx: 05:02 Diabetes - NIDDM; Depression; Hypertension; em 05:11 Hypertension; Diabetes - NIDDM; Depression; ea - PSHx: 05:02 Knee surgery; ; em - Immunization history:: Adult Immunizations up to date, Adult Immunizations up to date. - Social history:: Smoking status: unknown Smoking status: Patient denies any tobacco usage or history of. Screenin:58 Abuse screen: Denies threats or abuse. Nutritional screening: No deficits noted. ea Tuberculosis screening: No symptoms or risk factors identified. Fall Risk Fall in past 12 months (25 points). Assessment: 05:15 General: Appears uncomfortable, Behavior is cooperative, restless. Pain: Complains of ea pain in right arm. Neuro: Level of Consciousness is awake, alert, obeys commands, Oriented to person, place, time. Respiratory: Airway is patent Respiratory effort is even, unlabored, Respiratory pattern is regular, symmetrical. Derm: Skin is pink, warm \T\ dry. 05:15 General: Appears uncomfortable, Behavior is agitated, anxious. Pain: Complains of pain bb in right shoulder Pain currently is 10 out of 10 on a pain scale. Neuro: Level of Consciousness is awake, alert, obeys commands, Oriented to person, place, situation. Cardiovascular: Capillary refill < 3 seconds Patient's skin is warm and dry. Respiratory: Airway is patent Respiratory effort is even, unlabored, Respiratory pattern is regular. GI: No signs and/or symptoms were reported involving the gastrointestinal system. Derm: Skin is dry, Skin is normal, Skin temperature is warm. Musculoskeletal: Capillary refill < 3 seconds, Reports pain in right shoulder. 06:00 Reassessment: pt A\T\O x 3, resp unlabored, states the pain is a little better but not bb much. 06:58 Reassessment: Patient and/or family updated on plan of care and expected duration. Pain ea level reassessed. Patient is alert, oriented x 3, equal unlabored respirations, skin warm/dry/pink. 08:04 Reassessment: Pt has been discharged but making phone calls to try and find a ride kg home.. 08:57 Reassessment: Pt still unable to find a ride home and still making phone calls. . kg Vital Signs: 05:00 BP 165 / 105; Pulse 92; Resp 16; Temp 97.7; Pulse Ox 99% on R/A; Weight 61.23 kg; em Height 4 ft. 8 in. (142.24 cm); Pain 10/10; 05:58 BP 142 / 83; Pulse 79; Resp 16 S; Pulse Ox 98% on R/A; Pain 8/10; bb 07:00 BP 125 / 74; Pulse 70; Resp 20; Pulse Ox 95% on R/A; kg 07:36 BP 127 / 89; Pulse 77; Resp 20; Pulse Ox 96% on R/A; kg 05:00 Body Mass Index 30.27 (61.23 kg, 142.24 cm) em ED Course: 04:50 Patient arrived in ED. es 04:50 Caesar Nuno MD is Private Physician. es 04:57 Elodia Michelle, RN is Primary Nurse. ea 04:59 Patient has correct armband on for positive identification. Bed in low position. Call ea light in reach. Side rails up X2. 05:00 Ronal Agustin MD is Attending Physician. [facility] 05:02 Triage completed. em 05:02 Arm band placed on. em 05:15 Inserted saline lock: 20 gauge in left forearm, using aseptic technique. bb 05:55 XRAY Shoulder RIGHT 2 view In Process Unspecified. EDMS 06:48 Shoulder Right (2 View) XRAY In Process Unspecified. EDMS 07:06 Report given to Angela METCALF. bb 07:21 Ashok Livingston MD is Referral Physician. [facility] 07:36 No provider procedures requiring assistance completed. IV discontinued, intact, kg bleeding controlled, No redness/swelling at site. Pressure dressing applied. Administered Medications: 05:24 Drug: morphine 4 mg Route: IVP; Site: left forearm; ea 06:01 Follow up: Response: No adverse reaction; Pain is decreased bb 06:01 Follow up: Response: RASS: Restless (+1) bb 05:24 Drug: Zofran (Ondansetron) 4 mg Route: IVP; Site: left forearm; ea 06:01 Follow up: Response: No adverse reaction bb 06:20 Drug: morphine 4 mg Route: IVP; Site: right forearm; em 07:37 Follow up: Response: No adverse reaction; Marked relief of symptoms kg 06:22 Drug: Versed (midazolam) 2 mg Route: IVP; Site: left forearm; em 07:37 Follow up: Response: No adverse reaction; Marked relief of symptoms kg Outcome: 07:22 Discharge ordered by . [facility] 07:36 Discharged to home ambulatory. kg 07:36 Condition: good 07:36 Discharge instructions given to patient, Instructed on discharge instructions, follow up and referral plans. Demonstrated understanding of instructions, follow-up care. 09:02 Patient left the ED. kg Signatures: Dispatcher [employer] Tati Almonte Edgar, RN RN em Ballard, Brenda, RN RN bb Antunez, Elena, RN RN ea Holmes, Maurice, MD MD [facility] Angela Elam RN RN kg Corrections: (The following items were deleted from the chart) 05:26 05:00 Acuity: ZAHIRA 4 em em
--- NOTE | 2021-04-17 08:59 | RAD REPORT ---
EXAM DESCRIPTION: Shoulder Right 2 View - 04/17/2021 5:56 am CLINICAL HISTORY: PAIN, slip and fall COMPARISON: Shoulder Right 2 View dated 02/19/2021 TECHNIQUE: Internal and external rotation views of the right shoulder were obtained. FINDINGS: Right humeral head is dislocated medial and inferior to the bony glenoid. This is a classi c anterior dislocation pattern. Fracture fragment is not identifiable. Concave contour along the supe rolateral margin likely Hill-Sachs deformity. AC joint is normal in appearance. No acute or suspiciou s findings. IMPRESSION: Anterior dislocation with Hill-Sachs deformity to the humeral head.
--- NOTE | 2021-04-17 09:01 | RAD REPORT ---
EXAM DESCRIPTION: Shoulder Right 2 View - 04/17/2021 6:48 am CLINICAL HISTORY: post reduction COMPARISON: Shoulder Right 2 View dated 04/17/2021 TECHNIQUE: Single AP projection was obtained after reduction maneuvers performed. FINDINGS: Humeral head has been reduced to anatomic position. No new bone or joint finding identifi able.
[2021-04-17 09:09] VITALS: TEMP 97.7
[2021-04-17 09:14] VITALS: BP 127/89; O2SAT 96
== END 2021-04-17 09:02 | disposition home or self-care (01) ==
LOC: ER 04:47
PROC: 0RSJXZZ Reposition Right Shoulder Joint, External Approach (ICD-10-PCS; principal; 2021-04-17)
DX: S43.004A Unspecified dislocation of right shoulder joint, initial encounter (principal); W18.39XA Other fall on same level, initial encounter; Y93.01 Activity, walking, marching and hiking; Z88.6 Allergy status to analgesic agent; I10 Essential (primary) hypertension
CPT/HCPCS: 73030 ×2; 23650; J2250; J2405; 99284

== ENCOUNTER 2021-05-17 14:38 | Emergency (ER) | payer OTHER ==
--- OUTSIDE RECORDS SUMMARY | 2021-05-17 14:41 | XMS REPORT | Continuity of Care Document ---
:1960 [address] [facility] t Address [address] [place] [address] Care Team Providers Name Role Phone Luis [...] 2021-04-14 2021-04-14 Emergency THO [place] [id number] 12:52:00 15:38:00 [facility] [id number] [facility] [id number] [facility] [phone] [address] ([facility]) 2021-03-04 2021-03-04 Telephone THO Chapman [id number] 00:00:00 00:00:00 Nitin Aparicio [facility] [id number] [facility] [id number] [facility] AT [phone] [address] 2020-12-23 2020-12-23 Ancillary THO Ascencio [id number] 10:30:34 11:15:04 Visit Stephania Malone [id number] Neeraj [id number] Profess[facility] [phone] critical [facility] [address] Building 2020-12-16 2020-12-18 Ancillary Geraldo [facility] [id number] 13:02:06 08:04:55 Visit Kira Arroyo [id number] Katie Pickard [id number] Professio [phone] critical access hospital 179 [facility] 2020-12-14 2020-12-14 Office Ari [facility] [id number] 13:22:18 13:52:43 Visit Nitin KIRKLAND [id number] [facility] [id number] CENTER AT [phone] DAVIDA Hines [facility] Results This patient has no known results.
[2021-05-17] MEDS ORDERED: FENTANYL CITR 100 MCG/2 ML ONE (15:34)
[2021-05-17] MEDS ORDERED: ONDANSETRON 4 MG/2 ML VIAL ONE (15:35)
[2021-05-17] MEDS ORDERED: MORPHINE 2 MG/ML SYR ONE (15:39)
[2021-05-17] MEDS ORDERED: ONDANSETRON 4 MG (ODT) TAB ONE (15:40)
--- NOTE | 2021-05-17 16:12 | RAD REPORT ---
EXAM DESCRIPTION: Shoulder Right 2 View - 05/17/2021 3:56 pm CLINICAL HISTORY: dislocation COMPARISON: Shoulder Right 2 View dated 04/17/2021 TECHNIQUE: Internal and external rotation views of the right shoulder were obtained. FINDINGS: Right humeral head is dislocated medial and inferior to the glenoid which is classic for a nterior dislocation. No fracture is identifiable. AC joint is normal in appearance. No abnormal soft tissue calcification. No pathologic changes. IMPRESSION: Anterior dislocation of the right humerus.
[2021-05-17] MEDS ORDERED: propofoL 200 MG/20 ML VIAL IV ONE (16:33)
[2021-05-17] MEDS ORDERED: DIAZEPAM 10 MG/2 ML INJ SYRINGE ONE (16:37)
--- NOTE | 2021-05-18 17:33 | ER ---
Nurse's Notes [facility] Name: Yomaira Mondragon Age: 60 yrs Sex: Female : 1960 Arrival Date: 05/17/2021 Time: 14:40 Bed 19 Private MD: Caesar Nuno Diagnosis: Right Shoulder Dislocation Presentation: 05/17 14:47 Chief complaint: Patient states: Pt stated, "I lifted my arm up to unlock the door and kg I just felt a pop" Pt is crying and screaming in pain. Happened at approximant 14:00. Coronavirus screen: Client denies travel out of the [place] in the last 14 days. At this time, unable to obtain information related to travel outside the [place] At this time, the client does not indicate any symptoms associated with coronavirus-19. Ebola Screen: Patient negative for fever greater than or equal to 101.5 degrees Fahrenheit, and additional compatible Ebola Virus Disease symptoms Patient denies exposure to infectious person. Patient denies travel to an Ebola-affected area in the 21 days before illness onset. Initial Sepsis Screen: Does the patient meet any 2 criteria? No. Patient's initial sepsis screen is negative. Does the patient have a suspected source of infection? No. Patient's initial sepsis screen is negative. Risk Assessment: Do you want to hurt yourself or someone else? Patient reports no desire to harm self or others. Onset of symptoms was May 17, 2021 at 14:00. 14:47 Method Of Arrival: Wheelchair kg 14:47 Acuity: ZAHIRA 3 kg Historical: - Allergies: 14:49 meloxicam; kg - PMHx: 14:49 Depression; Diabetes - NIDDM; Hypertension; multiple shoulder dislocation; kg - PSHx: 14:49 Right knee shoulder; kg - Immunization history:: Adult Immunizations Client reports receiving the 2nd dose of the Covid vaccine. - Social history:: Smoking status: Patient denies any tobacco usage or history of. Screenin:02 Abuse screen: Denies threats or abuse. Nutritional screening: No deficits noted. ap3 Tuberculosis screening: No symptoms or risk factors identified. Fall Risk None identified. Assessment: 16:00 General: Appears distressed, uncomfortable, Behavior is crying, fussy, restless. Pain: ap3 Complains of pain in anterior aspect of right shoulder and posterior aspect of right shoulder. Neuro: Level of Consciousness is awake, alert, Oriented to person, place, time, situation, Weakness in right arm(s). Cardiovascular: Capillary refill < 3 seconds Patient's skin is warm and dry. Respiratory: Airway is patent Respiratory effort is even, unlabored, Respiratory pattern is regular, symmetrical. GI: Abdomen is flat. : No signs and/or symptoms were reported regarding the genitourinary system. EENT: No signs and/or symptoms were reported regarding the EENT system. Derm: No signs and/or symptoms reported regarding the dermatologic system. Musculoskeletal: right arm from dislocation. Vital Signs: 14:47 Pulse 103; Resp 20; Temp 98.2(O); Pulse Ox 99% on R/A; Weight 56.7 kg; Height 4 ft. 8 kg in. (142.24 cm); Pain 10/10; 14:47 BP 157 / 119; kg 16:52 BP 125 / 85; Pulse 82; Resp 17; Pulse Ox 100% on 2 lpm NC; Pain 10/10; ap3 16:56 BP 133 / 99; Pulse 82; Resp 16; Pulse Ox 99% on 2 lpm NC; ap3 16:58 BP 131 / 86; Pulse 82; Resp 18; Pulse Ox 100% on 2 lpm NC; ap3 17:00 BP 125 / 92; Pulse 82; Resp 18; Pulse Ox 100% on 2 lpm NC; ap3 17:06 BP 111 / 75; Pulse 79; Resp 19; Pulse Ox 99% on 2 lpm NC; ap3 17:09 BP 132 / 85; Pulse 83; Resp 19; Pulse Ox 96% on 2 lpm NC; ap3 17:12 BP 132 / 85; Pulse 80; Resp 18; Pulse Ox 98% on 2 lpm NC; ap3 17:14 BP 138 / 89; Pulse 80; Resp 20; Pulse Ox 100% on R/A; ap3 17:16 BP 171 / 6; Pulse 82; Resp 19; Pulse Ox 100% on R/A; ap3 17:18 BP 138 / 90; Pulse 81; Resp 17; Pulse Ox 98% on R/A; ap3 17:20 BP 152 / 94; Pulse 76; Resp 15; Pulse Ox 97% on R/A; ap3 17:22 BP 148 / 93; Pulse 86; Resp 17; Pulse Ox 99% on R/A; ap3 17:24 BP 152 / 95; Pulse 82; Resp 18; Pulse Ox 98% on R/A; ap3 17:24 BP 154 / 89; Pulse 83; Resp 17; Pulse Ox 99% on R/A; ap3 14:47 Body Mass Index 28.02 (56.70 kg, 142.24 cm) kg ED Course: 14:40 Patient arrived in ED. rg4 14:41 Caesar Nuno MD is Private Physician. rg4 14:49 Triage completed. kg 15:01 Jose Elias España PA is PHCP. [facility] 15:01 Kervin Craft MD is Attending Physician. [facility] 15:09 Devika Ray, TEA is Primary Nurse. ap3 15:27 Missed attempt(s): 22 gauge in left hand. Bleeding controlled, band aid applied, ph catheter tip intact. Missed attempt(s): 22 gauge in left forearm. Bleeding controlled, band aid applied, catheter tip intact. Missed attempt(s): 24 gauge in left forearm. Bleeding controlled, band aid applied, catheter tip intact. 15:56 Shoulder Right (2 View) XRAY In Process Unspecified. EDMS 16:02 Arm band placed on left wrist. ap3 16:02 Patient has correct armband on for positive identification. Bed in low position. Call ap3 light in reach. Side rails up X2. Adult w/ patient. Pulse ox on. NIBP on. Door closed. Noise minimized. Warm blanket given. 17:39 reduction of right shoulder of right shoulder Patient tolerated well. ap3 18:15 Caesar Nuno MD is Referral Physician. [facility] Administered Medications: 15:29 Drug: morphine 4 mg Route: IM; Site: left deltoid; ph 17:26 Follow up: Response: No adverse reaction ap3 15:29 Drug: Zofran (Ondansetron) 4 mg Route: PO; ph 17:26 Follow up: Response: No adverse reaction ap3 16:50 Drug: fentaNYL (PF) 50 mcg Route: IVP; Site: left hand; ap3 16:53 Drug: Propofol 0.5 mg/kg Route: IVP; Site: left hand; ap3 18:35 Follow up: Response: No adverse reaction; RASS: Alert and Calm (0) ap3 17:27 Not Given (Physician Discretion): Zofran (Ondansetron) 4 mg IVP once; over 2 minutes ap3 Outcome: 18:34 Eloped from patient exam room, after seeing physician ap3 18:34 Condition: stable 18:34 Patient left the ED. ap3 Signatures: Dispatcher [employer] EDMS Jose Elias España PA PA jmm Hall, Patricia RN RN Delphine Rojo 4 Devika Ray RN RN ap3 Angela Elam RN RN kg
--- NOTE | 2021-05-18 17:33 | EDPHYS ---
Physician Documentation [facility] Name: Yomaira Mondragon Age: 60 yrs Sex: Female : 1960 Arrival Date: 05/17/2021 Time: 14:40 Bed 19 Private MD: Caesar Nuno ED Physician Kervin Craft HPI: 05/17 15:00 This 60 yrs old Female presents to ER via Wheelchair with complaints of jmm Dislocated Shoulder. 15:00 The patient or guardian complains of an injury. Onset: The symptoms/episode jmm began/occurred acutely, just prior to arrival. Modifying factors: the symptoms are alleviated by remaining still, The symptoms are aggravated by movement. Associated signs and symptoms: Pertinent negatives: chest pain. This is a 60-year-old female with history of diabetes mellitus, hypertension previous shoulder dislocations that presents to the emergency department with complaints of right shoulder pain beginning after attempting to open a door. Patient denies any other known injury. This has occurred multiple times in the past.. Historical: - Allergies: 14:49 meloxicam; kg - PMHx: 14:49 Depression; Diabetes - NIDDM; Hypertension; multiple shoulder dislocation; kg - PSHx: 14:49 Right knee shoulder; kg - Immunization history:: Adult Immunizations Client reports receiving the 2nd dose of the Covid vaccine. - Social history:: Smoking status: Patient denies any tobacco usage or history of. ROS: 15:00 Constitutional: Negative for fever, chills, and weight loss, Cardiovascular: Negative jmm for chest pain, palpitations, and edema, Respiratory: Negative for shortness of breath, cough, wheezing, and pleuritic chest pain. 15:00 MS/extremity: Positive for injury or acute deformity. 15:00 All other systems are negative. Exam: 15:00 Head/Face: atraumatic. Eyes: EOMI, no conjunctival erythema appreciated ENT: Moist jmm Mucus Membranes Neck: Trachea midline, Supple Chest/axilla: Normal chest wall appearance and motion. Cardiovascular: Regular rate and rhythm. No edema appreciated Respiratory: Normal respirations, no respiratory distress appreciated Abdomen/GI: Non distended, soft Back: Normal ROM Skin: General appearance color normal 15:00 Neuro: Awake and alert, normal gait Psych: Behavior is normal, Mood is normal, Patient is cooperative and pleasant 15:00 Constitutional: The patient appears alert, awake, anxious, in obvious distress. 15:00 Musculoskeletal/extremity: Deformity noted to the right shoulder, full radial pulse, full driller brake lining strength, compartments are soft, neurovascular intact pain is appreciated on range of motion. Vital Signs: 14:47 Pulse 103; Resp 20; Temp 98.2(O); Pulse Ox 99% on R/A; Weight 56.7 kg; Height 4 ft. 8 kg in. (142.24 cm); Pain 10/10; 14:47 BP 157 / 119; kg 16:52 BP 125 / 85; Pulse 82; Resp 17; Pulse Ox 100% on 2 lpm NC; Pain 10/10; ap3 16:56 BP 133 / 99; Pulse 82; Resp 16; Pulse Ox 99% on 2 lpm NC; ap3 16:58 BP 131 / 86; Pulse 82; Resp 18; Pulse Ox 100% on 2 lpm NC; ap3 17:00 BP 125 / 92; Pulse 82; Resp 18; Pulse Ox 100% on 2 lpm NC; ap3 17:06 BP 111 / 75; Pulse 79; Resp 19; Pulse Ox 99% on 2 lpm NC; ap3 17:09 BP 132 / 85; Pulse 83; Resp 19; Pulse Ox 96% on 2 lpm NC; ap3 17:12 BP 132 / 85; Pulse 80; Resp 18; Pulse Ox 98% on 2 lpm NC; ap3 17:14 BP 138 / 89; Pulse 80; Resp 20; Pulse Ox 100% on R/A; ap3 17:16 BP 171 / 6; Pulse 82; Resp 19; Pulse Ox 100% on R/A; ap3 17:18 BP 138 / 90; Pulse 81; Resp 17; Pulse Ox 98% on R/A; ap3 17:20 BP 152 / 94; Pulse 76; Resp 15; Pulse Ox 97% on R/A; ap3 17:22 BP 148 / 93; Pulse 86; Resp 17; Pulse Ox 99% on R/A; ap3 17:24 BP 152 / 95; Pulse 82; Resp 18; Pulse Ox 98% on R/A; ap3 17:24 BP 154 / 89; Pulse 83; Resp 17; Pulse Ox 99% on R/A; ap3 14:47 Body Mass Index 28.02 (56.70 kg, 142.24 cm) kg Procedures: 17:14 Reduction: of the right shoulder, using traction, manipulation, Immobilized with sling, rn Patient tolerated well. Post reduction film - reveals normal alignment. Reduction: Performed by Dr. Craft. Moderate sedation: Pre-procedure assessment: the patient has been NPO 4 hour(s) prior to arrival, ASA physical classification: I - healthy, no underlying organic disease, Airway assessment: able to hyperextend neck, able to maintain airway, can open mouth without difficulty, Monitoring during procedure: traffic monitor specialist, continuous pulse oximetry, nurse at bedside at all times, Medications employed: propofol, Post-procedure assessment: the patient is mildly sedated, Respiratory status: even and unlabored, a reversal agent was not used. MDM: 15:06 Patient medically screened. [facility] 17:55 Data reviewed: vital signs, nurses notes. Counseling: I had a detailed discussion with ana the patient and/or guardian regarding: the historical points, exam findings, and any diagnostic results supporting the discharge/admit diagnosis, radiology results, the need for outpatient follow up, to return to the emergency department if symptoms worsen or persist or if there are any questions or concerns that arise at home. ED course: After sedation, the shoulder was easily reduced.. 18:15 ED course: Patient eloped from the ED prior to post reduction film. [facility] 05/17 15:37 Order name: Shoulder Right (2 View) XRAY; Complete Time: 16:14 [facility] 05/17 15:02 Order name: Saline Lock; Complete Time: 15:29 [facility] 05/17 16:01 Order name: Conscious Sedation; Complete Time: 17:26 [facility] 05/17 16:31 Order name: Shoulder Immobilizer; Complete Time: 17:26 [facility] Administered Medications: 15:29 Drug: morphine 4 mg Route: IM; Site: left deltoid; ph 17:26 Follow up: Response: No adverse reaction ap3 15:29 Drug: Zofran (Ondansetron) 4 mg Route: PO; ph 17:26 Follow up: Response: No adverse reaction ap3 16:50 Drug: fentaNYL (PF) 50 mcg Route: IVP; Site: left hand; ap3 16:53 Drug: Propofol 0.5 mg/kg Route: IVP; Site: left hand; ap3 18:35 Follow up: Response: No adverse reaction; RASS: Alert and Calm (0) ap3 17:27 Not Given (Physician Discretion): Zofran (Ondansetron) 4 mg IVP once; over 2 minutes ap3 Disposition: 18:53 Co-signature as Attending Physician, Kervin Craft MD I agree with the assessment and rn plan of care. PA/OPTOMETRIC TECH's history reviewed, patient interviewed, and examined. HPI: 60 year old female with recurrent shoulder dislocation today while opening/closing door. No direct trauma. My personal exam of patient reveals: + right shoulder pain with right arm held in passive flexion. I agree with assessment and care plan and confirm the diagnosis (es) above. Disposition Summary: 05/17/21 18:17 Eloped Disposition: after being seen by provider [facility] Reason: unknown [facility] Diagnosis - Right Shoulder Dislocation [facility] Followup: [facility] - With: Caesar Nuno MD - When: 2 - 3 days - Reason: Recheck today's complaints, Continuance of care, Re-evaluation by your physician Signatures: Dispatcher [employer] EDMS Jose Elias España PA PA jmm Nieto, Roman, MD MD rn Taylor Watts RN RN Devika Ray RN RN ap3 Angela Elam RN RN kg Corrections: (The following items were deleted from the chart) 18:24 18:15 Shoulder Right 2 View+RAD.RAD.BRZ ordered. EDIN EDMS
[2021-05-19 12:09] VITALS: TEMP 98.2
[2021-05-19 12:32] VITALS: O2SAT 99
[2021-05-19 12:34] VITALS: BP 154/89
== END 2021-05-17 18:34 | disposition left against medical advice (07) ==
LOC: ER 14:38
PROC: 0RSJXZZ Reposition Right Shoulder Joint, External Approach (ICD-10-PCS; principal; 2021-05-17)
DX: S43.004A Unspecified dislocation of right shoulder joint, initial encounter (principal); I10 Essential (primary) hypertension; Z88.8 Allergy status to other drugs, medicaments and biological substances
CPT/HCPCS: 73030; 23655; J2704; J3360; J3010; J2270; J2405

== ENCOUNTER 2021-07-12 19:19 | Emergency (ER) | payer OTHER ==
[2021-07-12] MEDS ORDERED: ONDANSETRON 4 MG/2 ML VIAL ONE (21:24)
[2021-07-12] MEDS ORDERED: MORPHINE 4 MG/ML SYR ONE (21:24)
--- NOTE | 2021-07-12 21:25 | ER ---
Nurse's Notes [facility] Name: Yomaira Mondragon Age: 60 yrs Sex: Female : 1960 Arrival Date: 07/12/2021 Time: 19:22 Bed DX3 Private MD: Diagnosis: Other dislocation of right shoulder joint Presentation: 07/12 20:42 Chief complaint: Patient states: Pt c/o right shoulder pain. Pt states she was moving a wg washing machine today around 4pm and believes she dislocated her right shoulder. Pt believes it is still disclocated. Pt states she has dislocated her shoulder several times in the past and is usually able to pop it back in. Pt has +CMS to right upper extremity. Coronavirus screen: Vaccine status: Patient reports receiving the 2nd dose of the covid vaccine. Date April 22, 2021. Coronavirus screen: At this time, the client does not indicate any symptoms associated with coronavirus-19. Ebola Screen: Patient negative for fever greater than or equal to 101.5 degrees Fahrenheit, and additional compatible Ebola Virus Disease symptoms Patient denies exposure to infectious person. Patient denies travel to an Ebola-affected area in the 21 days before illness onset. Initial Sepsis Screen: Does the patient meet any 2 criteria? Yes Does the patient have a suspected source of infection? No. Patient's initial sepsis screen is negative. Risk Assessment: Do you want to hurt yourself or someone else? Patient reports no desire to harm self or others. Onset of symptoms was July 12, 2021 at 16:00. 20:42 Method Of Arrival: Ambulatory 20:42 Acuity: ZAHIRA 3 Triage Assessment: 20:46 General: Appears distressed, uncomfortable, obese, Behavior is cooperative, anxious, wg restless. Pain: Complains of pain in Right shoulder. Musculoskeletal: Reports Pain is 10 out of 10 on a pain scale. Musculoskeletal: No deficits noted. Parent/caregiver report the patient having Pt states it feels like it is dislocated but no signs of deformity or signs of dislocation. 21:24 Injury Description: Pt reports right shoulder dislocation. dc2 Historical: - Allergies: 20:46 meloxicam; wg - Home Meds: 20:46 Lisinopril Oral [Active]; Metformin Oral [Active]; Lactulose Oral [Active]; Albuterol Nebulizer [Active]; - PMHx: 20:46 Depression; Diabetes - NIDDM; Hypertension; Chronic obstructive lung disease; wg - PSHx: 20:46 Right knee shoulder; wg - Immunization history:: Adult Immunizations up to date. - Social history:: Smoking status: . Screenin:10 Abuse screen: Denies threats or abuse. Denies injuries from another. Nutritional dc2 screening: No deficits noted. Tuberculosis screening: No symptoms or risk factors identified. Fall Risk None identified. Assessment: 21:10 General: Appears in no apparent distress. uncomfortable, Behavior is anxious, crying, dc2 fussy. 21:10 Pain: Complains of pain in posterior aspect of right shoulder Pain does not radiate. dc2 Pain currently is 9 out of 10 on a pain scale. Quality of pain is described as throbbing, Pain began 4 hours ago. Is continuous. Neuro: Level of Consciousness is awake, alert, obeys commands, Oriented to person, place, time, situation, Appropriate for age. Cardiovascular: Capillary refill < 3 seconds Patient's skin is warm and dry. Respiratory: Airway is patent Respiratory effort is even, unlabored, Respiratory pattern is regular, symmetrical. GI: Abdomen is round non-distended. : No signs and/or symptoms were reported regarding the genitourinary system. EENT: No signs and/or symptoms were reported regarding the EENT system. Derm: No signs and/or symptoms reported regarding the dermatologic system. Musculoskeletal: Range of motion: limited in right shoulder. Vital Signs: 20:42 BP 190 / 92; Pulse 90; Resp 18; Temp 97.5; Pulse Ox 98% on R/A; Weight 58.06 kg; Height 4 ft. 8 in. (142.24 cm); Pain 10/10; 20:42 Body Mass Index 28.70 (58.06 kg, 142.24 cm) ED Course: 19:22 Patient arrived in ED. rg4 20:46 Triage completed. wg 20:46 Arm band placed on left wrist. wg 20:54 Jae Chavira NP is PHCP. pm1 20:54 Imer Gomez MD is Attending Physician. pm1 21:04 Inserted saline lock: 20 gauge in left hand, using aseptic technique. dh4 21:10 Patient has correct armband on for positive identification. Call light in reach. Side dc2 rails up X2. Pulse ox on. NIBP on. Door closed. Noise minimized. 21:10 Assist provider with reduction of right shoulder Patient tolerated well. IV dc2 discontinued, intact, bleeding controlled, No redness/swelling at site. 21:25 Ashok Livingston MD is Referral Physician. pm1 21:28 Shoulder Right (2 View) XRAY In Process Unspecified. EDMS Administered Medications: 20:55 CANCELLED (Physician Discretion): HYDROcodone-acetaminophen 5 mg-325 mg 1 tabs PO once; pm1 RASS on ADMIN: Combtv4, Very Agttd3, Agttd2, Rstlss1, AlertClm0, Drwsy-1, Lt Sdtn-2, Mod Sdtn-3, Dp Sdtn-4, UnArsble-5 21:06 Drug: morphine 4 mg Route: IVP; Site: left hand; ld1 21:23 Follow up: Response: No adverse reaction dc2 21:06 Drug: Zofran (Ondansetron) 4 mg Route: IVP; Site: left hand; ld1 21:23 Follow up: Response: No adverse reaction dc2 21:24 Drug: fentaNYL (PF) 50 mcg Route: IVP; Site: left hand; dc2 21:24 Follow up: Response: No adverse reaction dc2 Outcome: 21:10 Discharged to home via wheelchair. dc2 21:10 Condition: stable 21:10 Discharge instructions given to patient, Instructed on discharge instructions, follow up and referral plans. Demonstrated understanding of instructions, follow-up care. 21:25 Discharge ordered by . pm1 21:30 Patient left the ED. dc2 Signatures: Dispatcher [employer] EDMS Jae Chavira, JASPREET SENIOR PROJECT MANAGER pm1 Delphine Rojo 4 Roger Resendiz 4 Effie Rodriguez RN RN ld1 Joseluis Maxwell RN Basilia Lambert RN RN dc2
--- NOTE | 2021-07-12 21:25 | EDPHYS ---
Physician Documentation [facility] Name: Yomaira Mondragon Age: 60 yrs Sex: Female : 1960 Arrival Date: 07/12/2021 Time: 19:22 Bed DX3 Private MD: ED Physician Imer Gomez HPI: 07/12 20:53 This 60 yrs old Female presents to ER via Ambulatory with complaints of pm1 Shoulder Pain. 20:53 The patient or guardian complains of pain, that is acute. right shoulder. Context: The pm1 problem was sustained at home, resulted from Reaching upwards, The patient reports no obvious deformity. 20:53 Onset: The symptoms/episode began/occurred yesterday. Modifying factors: the symptoms pm1 are alleviated by remaining still, The symptoms are aggravated by movement. Associated signs and symptoms: Pertinent negatives: Numbness in right arm tingling. Severity of symptoms: in the emergency department the symptoms are unchanged. Treatment prior to arrival includes: no previous treatment. The patient has experienced similar episodes in the past, multiple times, Patient reports history of multiple shoulder dislocations. The patient has not recently seen a physician. Historical: - Allergies: 20:46 meloxicam; wg - Home Meds: 20:46 Lisinopril Oral [Active]; Metformin Oral [Active]; Lactulose Oral [Active]; Albuterol wg Nebulizer [Active]; - PMHx: 20:46 Depression; Diabetes - NIDDM; Hypertension; Chronic obstructive lung disease; wg - PSHx: 20:46 Right knee shoulder; wg - Immunization history:: Adult Immunizations up to date. - Social history:: Smoking status: . ROS: 20:55 Constitutional: Negative for fever, chills, and weight loss, Cardiovascular: Negative pm1 for chest pain, palpitations, and edema, Respiratory: Negative for shortness of breath, cough, wheezing, and pleuritic chest pain, Skin: Negative for injury, rash, and discoloration, Neuro: Negative for headache, weakness, numbness, tingling, and seizure. 20:55 MS/extremity: Positive for pain, of the right shoulder. 20:55 All other systems are negative. Exam: 20:55 Constitutional: This is a well developed, well nourished patient who is awake, alert, pm1 and in no acute distress. Head/Face: Normocephalic, atraumatic. 20:55 Skin: Warm, dry with normal turgor. Normal color with no rashes, no lesions, and no evidence of cellulitis. 20:55 ENT: Mouth: Lips: normal, moist, Oral mucosa: normal, pink and intact, moist. 20:55 Cardiovascular: Exam negative for acute changes, Rate: normal, Rhythm: regular, Pulses: no pulse deficits are appreciated. 20:55 Respiratory: Exam negative for acute changes, respiratory distress, shortness of breath. 20:55 Musculoskeletal/extremity: Extremities: grossly normal except: noted in the right shoulder: tenderness, Pulses: noted to be 2+ in the right radial artery, the right hand Sensation intact. 20:55 Neuro: Exam negative for acute changes, Orientation: is normal, Mentation: is normal, Motor: is normal, moves all fours. Vital Signs: 20:42 BP 190 / 92; Pulse 90; Resp 18; Temp 97.5; Pulse Ox 98% on R/A; Weight 58.06 kg; Height wg 4 ft. 8 in. (142.24 cm); Pain 10/10; 20:42 Body Mass Index 28.70 (58.06 kg, 142.24 cm) wg Procedures: 21:21 Reduction: of the right shoulder, using traction, Immobilized with shoulder pm1 immobilizer. Patient tolerated well. Post reduction film - Patient refused. MDM: 20:55 Patient medically screened. pm1 20:58 Data reviewed: vital signs. Data interpreted: Pulse oximetry: on room air is 98 %. pm1 Interpretation: normal. 21:21 Refusal of service: The patient/guardian displays adequate decision making capability pm1 and despite a detailed discussion of alternatives, benefits, risks, and consequences refuses: Repeat x-ray to verify reduction. Patient reports no pain post reduction and wants to go home now since her is waiting outside. 21:21 Counseling: I had a detailed discussion with the patient and/or guardian regarding: the pm1 historical points, exam findings, and any diagnostic results supporting the discharge/admit diagnosis, radiology results, the need for outpatient follow up, for definitive care, a orthopedic surgeon, to return to the emergency department if symptoms worsen or persist or if there are any questions or concerns that arise at home. 07/12 20:53 Order name: Shoulder Right (2 View) XRAY pm1 07/12 20:55 Order name: IV Saline Lock; Complete Time: 21:04 pm1 Administered Medications: 20:55 CANCELLED (Physician Discretion): HYDROcodone-acetaminophen 5 mg-325 mg 1 tabs PO once; pm1 RASS on ADMIN: Combtv4, Very Agttd3, Agttd2, Rstlss1, AlertClm0, Drwsy-1, Lt Sdtn-2, Mod Sdtn-3, Dp Sdtn-4, UnArsble-5 21:06 Drug: morphine 4 mg Route: IVP; Site: left hand; ld1 21:23 Follow up: Response: No adverse reaction dc2 21:06 Drug: Zofran (Ondansetron) 4 mg Route: IVP; Site: left hand; ld1 21:23 Follow up: Response: No adverse reaction dc2 21:24 Drug: fentaNYL (PF) 50 mcg Route: IVP; Site: left hand; dc2 21:24 Follow up: Response: No adverse reaction dc2 Disposition: 07/13 07:26 Co-signature as Attending Physician, Imer Gomez MD I agree with the assessment and fletcher plan of care. Disposition Summary: 07/12/21 21:25 Discharge Ordered Location: Home pm1 Problem: new pm1 Symptoms: have improved pm1 Condition: Stable pm1 Diagnosis - Other dislocation of right shoulder joint pm1 Followup: pm1 - With: Emergency Department - When: As needed - Reason: Worsening of condition Followup: pm1 - With: Ashok Livingston MD - When: 2 - 3 days - Reason: Recheck today's complaints, Continuance of care, Re-evaluation by your physician Discharge Instructions: - Discharge Summary Sheet pm1 - Shoulder Dislocation pm1 - How to Use a Shoulder Immobilizer pm1 Forms: - Medication Reconciliation Form pm1 - Thank You Letter pm1 - Antibiotic Education pm1 - Prescription Opioid Use pm1 Signatures: Dispatcher [employer] Imer Mosley MD MD cha Marinas, Patrick, NP AGRONOMY INSTRUCTOR pm1 Effie Rodriguez RN RN ld1 Joseluis Maxwell RN wg Charters, Denise, RN RN dc2 Corrections: (The following items were deleted from the chart) 09/20 20:55 20:53 HYDROcodone-acetaminophen 5 mg-325 mg 1 tabs PO once; RASS on ADMIN: Combtv4, pm1 Very Agttd3, Agttd2, Rstlss1, AlertClm0, Drwsy-1, Lt Sdtn-2, Mod Sdtn-3, Dp Sdtn-4, UnArsble-5 ordered. pm1
[2021-07-12] MEDS ORDERED: FENTANYL CITR 100 MCG/2 ML ONE (21:39)
--- NOTE | 2021-07-12 21:39 | RAD REPORT ---
EXAM DESCRIPTION: RAD - Shoulder Right 2 View - 07/12/2021 9:28 pm CLINICAL HISTORY: PAIN COMPARISON: Shoulder Right 2 View dated 05/17/2021 FINDINGS: Right shoulder anterior inferior dislocation. No fractures seen. Degenerative changes are present of the right AC joint and glenohumeral joint. IMPRESSION: Anterior inferior right shoulder dislocation. No fracture identified.
[2021-07-12 22:40] VITALS: BP 190/92; TEMP 97.5; O2SAT 98
== END 2021-07-12 21:30 | disposition home or self-care (01) ==
LOC: ER 19:19
PROC: 0RSJXZZ Reposition Right Shoulder Joint, External Approach (ICD-10-PCS; principal; 2021-07-12)
DX: S43.084A Other dislocation of right shoulder joint, initial encounter (principal); I10 Essential (primary) hypertension; E11.9 Type 2 diabetes mellitus without complications; J44.9 Chronic obstructive pulmonary disease, unspecified; Z88.8 Allergy status to other drugs, medicaments and biological substances
CPT/HCPCS: 73030; 96375; 96374; 99284; 23650; J3010; J2405

== ENCOUNTER 2024-02-06 13:27 | Emergency (ER) | payer OTHER ==
--- OUTSIDE RECORDS SUMMARY | 2024-02-06 13:30 | XMS REPORT | Continuity of Care Document ---
Author Name Unknown Address [address] [facility] [address] [place] [address] [facility] thconnect Address [address] [facility] 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 Role Phone PCP, PATIENT DOES NOT HAVE A Primary Care Physic jody Unavailable NITIN CHAPMAN Attending Clinician Unavailable RADIOLOGY Attending Clinician Unavailable Radiology Attending Clinician Unavailable Pob, Adc Lab Main Attending Clinician UnavailSrinivasa Huang MD Attending Clinician SRINIVASA WAGNER Attending Clinician Unavailtelma john Doctor Unassigned, [place] Attending Clinician U Nitin Colvin Attending Clinician Unavailable KARIN STARR Attending Clinician Rosa Daniel Chen Attending Clinician Unavaila Richie Hannah Attending Clinician [phone] PHOENIX GILL Attending Clinician Unavailable PHOENIX GILL Attending Clinician Unavailable 2, Adc Lab Attending Clinician Unavailable Phoenix Gill DO Attending Clinician Ari BRADY, Nitin Aparicio Attending Clinician [phone] REJI REESE Attending Clinician UnavailESTEFANIA Nogueira Attending Clinician Unavailab renay Carvajal ROTARY DRUM DYER, Estefania Attending Clinician [phone] Dez Leon MD Attending Clinician [phone] Nitin Chapman Attending Clinician [phone] WILLIAMS AGUDELO Attending Clinician Unavailable Milagros Cary DO Attending Clinician [phone] Brown BRONZER, Stephania Puente Attending Clinician Unavail able Reji Reese MD Attending Clinician [phone] Geraldo Arroyo PT, Katie Attending Clinician Un available SONAL GORDON Attending Clinician Unavailable Lab, Adc Fam Pob I Attending Clinician Unavailab renay Gordon ROTARY DRUM DYER, Sonal Attending Clinician [phone] Only, Adc Test Attending Clinician Unavailable Katja Garcia Attending Clinician [phone] GREG SPEARS Attending Clinician Unavailable Shena Mullen PT Attending Clinician Unavailab renay Meneses BRONZER, Stephan Knowles Attending Clinician Unavaila portillo Wilson PT, Nicole Yancey Attending Clinician Unavailab Radha Christensen RN Attending Clinician Unavailab renay Smalls MD, Yefri Attending Clinician [phone] Barry Sheth MD Attending Clinician [phone] BARRY SHETH Attending Clinician Unavailable Kim PT, Nitin Lundy Attending Clinician Unavailtelma Alicia RN, Dianna Saldana Attending Clinician Unavailab Yg Goodman MD Attending Clinician [phone] LATONIA JAMES Attending Clinician UnavailNITIN Quintana Admitting Clinician Unavailable NICOLA BRANCH Admitting Clinician Unavailable Physician, No Primary or Family Admitting Clinic jody Unavailable Ruby Ge Admitting Clinician UnavailNitin Brothers MD Admitting Clinician [phone] LATONIA JAMES Admitting Clinician Unavailtelma john Payers Payer Name Policy Type Policy Number Effective Date Expirati on Date Source [facility] [id number] 2020 00:00:00 [facility] [id number] 2019 00:00:00 Problems Condition Name Condition Details Condition Category Status Onset Date Resolution Date Last Treatment Date Treating Clinician Comments Source Dysfunctio n of right rotator cuff Dysfunctio n of right rotator cuff Disease Active 3-04 00:00: 00 Overview: Formattin g of this note might be different from the original. Added automatic ally from request for surgery [id number] [facility] Pain Pain Disease Active 2019-10 2-17 00:00: 00 [facility] S/P total knee replacemen t, right S/P total knee replacemen t, right Disease Active 2019-10 1-20 00:00: 00 Overview: Formattin g of this note might be different from the original. Added automatic ally from request for surgery [id number] [facility] Acute postoperat jennifer pain of right knee Acute postoperat jennifer pain of right knee Disease Active 5-15 00:00: 00 [facility] Muscle weakness Muscle weakness Disease Active 5-15 00:00: 00 [facility] Gait abnormalit y Gait abnormalit y Disease Active 5-15 00:00: 00 [facility] Range of motion deficit Range of motion deficit Disease Active 5-15 00:00: 00 [facility] Surgery, elective Surgery, elective Disease Active 5-11 00:00: 00 [facility] Primary osteoarthr itis of both knees Primary osteoarthr itis of both knees Disease Active 3-12 00:00: 00 Overview: Formattin g of this note might be different from the original. 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 meloxica m DA Active SV THROAT CLOSURE 05-27 00:00: [address] [facility] ETODOLAC DRUG INGREDI Active Med Swelling 2019-10 00:00: 00 [facility] Etodolac Drug Allergy Active Swelling 2019-10 00:00: 00 [facility] Meloxica m Propensi ty to adverse reaction s Active Hives 02-27 00:00: 00 [facility] MELOXICA M DRUG INGREDI Active Hives 02-27 00:00: 00 [facility] Social History Social Habit Start Date Stop Date Quantity Comments Source [facility] to SARS-CoV-2 (event) 2022-06-21 00:00:00 2022-07-01 09:46:00 Not sure [facility] History of Social function 2022-03-10 00:00:00 2022-03-10 00:00:00 [facility] Tobacco use and exposure 2019-02-07 00:00:00 2019-02-07 00:00:00 Smokeless tobacco non-user [facility] Sex Assigned At 1960 00:00:00 1960 00:00:00 [facility] Smoking Status Start Date Stop Date Source Never smoked tobacco [facility] Medications Ordered Medication Name Filled Medication Name Start Date Stop Date Current Medication? Ordering Clinician Indication Dosage Frequency Signature (SIG) Comments Components Source omeprazole 40 mg capsule 07-01 09:57: 00 Yes 40mg Take 40 mg by mouth daily. [facility] hydroCHLORO thiazide 25 mg tablet 07-01 09:57: 00 Yes 25mg Take 25 mg by mouth daily. [facility] lisinopril 20 mg tablet 07-01 09:57: 00 Yes 20mg Take 20 mg by mouth daily. [facility] metFORMIN 500 mg tablet 07-01 09:57: 00 Yes 500mg Take 500 mg by mouth 2 (two) times daily with meals. [facility] oxybutynin 10 mg 24 hr tablet 07-01 09:57: 00 Yes 10mg Take 10 mg by mouth in the morning. [facility] budesonide- formoteroL (SYMBICORT) 160-4.5 mcg/actuati on inhaler 07-01 00:00: 00 Yes [id number] 2{puff} Inhale 2 Puffs in the morning and 2 Puffs in the evening. [facility] albuterol sulfate (PROVENTIL ORAL) 03-10 19:11: 54 Yes Take by mouth. [facility] docusate 100 mg capsule 03-10 00:00: 00 Yes [id number] 100mg Take 1 capsule by mouth 2 (two) times daily. [facility] HYDROcodone -acetaminop hen 10-325 mg tablet 03-10 00:00: 00 Yes [id number] 1{tbl} Take 1 tablet by mouth every 6 (six) hours as needed for Pain (scale 7-10). Indication s: acute pain [facility] traMADoL 50 mg tablet 03-10 00:00: 00 Yes [id number] 50mg Take 1 tablet by mouth every 6 (six) hours as needed for Pain (scale 4-6) or Pain (scale 7-10). Indication s: acute pain [facility] SYMBICORT 80-4.5 mcg/actuati on inhaler 11-29 00:00: 00 07-01 00:00 :00 No [facility] solifenacin 10 mg tablet 2020-10 0-08 00:00: 00 07-31 04:59 :00 No 10mg Take 10 mg by mouth. [facility] gabapentin 300 mg capsule 2019-10 00:00: 00 Yes [id number] 300mg Take 1 capsule by mouth 3 (three) times daily. [facility] naproxen (NAPROSYN) 500 mg tablet 2019-10 00:00: 00 Yes [id number] 500mg Take 1 tablet by mouth 2 (two) times daily with meals. [facility] Cholecalcif yanick, Vitamin D3, 50 mcg (2,000 unit) capsule 2019-10 00:00: 00 Yes 50mg Take 50 mg by mouth. [facility] fluticasone propionate (FLOVENT HFA) 110 mcg/actuati on inhaler 07-22 00:00: 00 07-01 00:00 :00 No INHALE 1 PUFF BY MOUTH TWICE A DAY RINSE MOUTH AFTER USE [facility] lactulose 10 gram/15 mL solution 07-08 00:00: 00 Yes [facility] pravastatin 20 mg tablet 07-08 00:00: 00 Yes 20mg Take 20 mg by mouth. [facility] Immunizations Ordered Immunization Name Filled Immunization Name Date Status Comments Source SARS-COV-2 COVID-19 MODERNA 12+ YRS VACCINE 2020-11-30 00:00:00 Completed [facility] SARS-COV-2 COVID-19 MODERNA 12+ YRS VACCINE 2020-11-30 00:00:00 Completed [facility] SARS-COV-2 COVID-19 MODERNA 12+ YRS VACCINE 2020-11-30 00:00:00 Completed [facility] SARS-COV-2 COVID-19 MODERNA 12+ YRS VACCINE 2020-11-30 00:00:00 Completed [facility] SARS-COV-2 COVID-19 MODERNA 12+ YRS VACCINE 2020-11-30 00:00:00 Completed [facility] SARS-COV-2 COVID-19 MODERNA 12+ YRS VACCINE 2020-11-02 00:00:00 Completed [facility] SARS-COV-2 COVID-19 MODERNA 12+ YRS VACCINE 2020-11-02 00:00:00 Completed [facility] SARS-COV-2 COVID-19 MODERNA 12+ YRS VACCINE 2020-11-02 00:00:00 Completed [facility] SARS-COV-2 COVID-19 MODERNA 12+ YRS VACCINE 2020-11-02 00:00:00 Completed [facility] SARS-COV-2 COVID-19 MODERNA 12+ YRS VACCINE 2020-11-02 00:00:00 Completed [facility] Pneumococcal Polysaccharide, PPSV23 (PNEUMOVAX) 2020-10-09 00:00:00 Completed [facility] Influenza Virus Vaccine Quad .5 mL IM 6+ MO 2020-10-09 00:00:00 Completed [facility] Pneumococcal Polysaccharide, PPSV23 (PNEUMOVAX) 2020-10-09 00:00:00 Completed [facility] Influenza Virus Vaccine Quad .5 mL IM 6+ MO 2020-10-09 00:00:00 Completed [facility] Pneumococcal Polysaccharide, PPSV23 (PNEUMOVAX) 2020-10-09 00:00:00 Completed [facility] Influenza Virus Vaccine Quad .5 mL IM 6+ MO 2020-10-09 00:00:00 Completed [facility] Pneumococcal Polysaccharide, PPSV23 (PNEUMOVAX) 2020-10-09 00:00:00 Completed [facility] Influenza Virus Vaccine Quad .5 mL IM 6+ MO 2020-10-09 00:00:00 Completed [facility] Pneumococcal Polysaccharide, PPSV23 (PNEUMOVAX) 2020-10-09 00:00:00 Completed [facility] Influenza Virus Vaccine Quad .5 mL IM 6+ MO 2020-10-09 00:00:00 Completed [facility] Pneumococcal Polysaccharide, PPSV23 (PNEUMOVAX) Unknown Completed [facility] Influenza Virus Vaccine Quad .5 mL IM 6+ MO (FLUZONE/FLULAVAL/F LUARIX) Unknown Completed [facility] SARS-COV-2 COVID-19 MODERNA 12+ YRS VACCINE Unknown Completed [facility] SARS-COV-2 COVID-19 MODERNA 12+ YRS VACCINE Unknown Completed [facility] Pneumococcal Polysaccharide, PPSV23 (PNEUMOVAX) Unknown Completed [facility] Influenza Virus Vaccine Quad .5 mL IM 6+ MO (FLUZONE/FLULAVAL/F LUARIX) Unknown Completed [facility] SARS-COV-2 COVID-19 MODERNA 12+ YRS VACCINE Unknown Completed [facility] SARS-COV-2 COVID-19 MODERNA 12+ YRS VACCINE Unknown Completed [facility] Pneumococcal Polysaccharide, PPSV23 (PNEUMOVAX) Unknown Completed [facility] Influenza Virus Vaccine Quad .5 mL IM 6+ MO (FLUZONE/FLULAVAL/F LUARIX) Unknown Completed [facility] SARS-COV-2 COVID-19 MODERNA 12+ YRS VACCINE Unknown Completed [facility] SARS-COV-2 COVID-19 MODERNA 12+ YRS VACCINE Unknown Completed [facility] Pneumococcal Polysaccharide, PPSV23 (PNEUMOVAX) Unknown Completed [facility] Influenza Virus Vaccine Quad .5 mL IM 6+ MO (FLUZONE/FLULAVAL/F LUARIX) Unknown Completed [facility] SARS-COV-2 COVID-19 MODERNA 12+ YRS VACCINE Unknown Completed [facility] SARS-COV-2 COVID-19 MODERNA 12+ YRS VACCINE Unknown Completed [facility] Pneumococcal Polysaccharide, PPSV23 (PNEUMOVAX) Unknown Completed [facility] Influenza Virus Vaccine Quad .5 mL IM 6+ MO (FLUZONE/FLULAVAL/F LUARIX) Unknown Completed [facility] SARS-COV-2 COVID-19 MODERNA 12+ YRS VACCINE Unknown Completed [facility] SARS-COV-2 COVID-19 MODERNA 12+ YRS VACCINE Unknown Completed [facility] Pneumococcal Polysaccharide, PPSV23 (PNEUMOVAX) Unknown Completed [facility] Influenza Virus Vaccine Quad .5 mL IM 6+ MO (FLUZONE/FLULAVAL/F LUARIX) Unknown Completed [facility] SARS-COV-2 COVID-19 MODERNA 12+ YRS VACCINE Unknown Completed [facility] SARS-COV-2 COVID-19 MODERNA 12+ YRS VACCINE Unknown Completed [facility] Pneumococcal Polysaccharide, PPSV23 (PNEUMOVAX) Unknown Completed [facility] Influenza Virus Vaccine Quad .5 mL IM 6+ MO (FLUZONE/FLULAVAL/F LUARIX) Unknown Completed [facility] SARS-COV-2 COVID-19 MODERNA 12+ YRS VACCINE Unknown Completed [facility] SARS-COV-2 COVID-19 MODERNA 12+ YRS VACCINE Unknown Completed [facility] Vital Signs Vital Name Observation Time Observation Value Fadi sanders Systolic blood pressure 2022-07-01 15:00:00 141 mm[Hg] [facility] Diastolic blood pressure 2022-07-01 15:00:00 84 mm[Hg] [facility] Heart rate 2022-07-01 15:00:00 76 /min [facility] Oxygen saturation in Arterial blood by Pulse oximetry 2022-07-01 15:00:00 96 /min [facility] Body temperature 2022-07-01 14:59:00 36.83 Tania [facility] Respiratory rate 2022-07-01 14:59:00 18 /min [facility] Body height 2022-07-01 14:59:00 142.2 cm [facility] Body weight 2022-07-01 14:59:00 60.238 kg [facility] BMI 2022-07-01 14:59:00 29.77 kg/m2 [facility] Procedures Procedure Date / Time Performed Performing Clinician Source XR KNEE 3 VW BILATERAL 2023-10-12 19:49:31 Sheeba Branch [facility] ASSIGNMENT OF BENEFITS 2023-09-04 16:07:03 Docto r Unassigned, [place] [facility] XR KNEE <3 VW RIGHT 2022-12-20 15:41:51 Padilla Young [facility] AUTHORIZATION FOR RELEASE OF PHI 2022-11-14 06:01:00 Doctor Unassigned, [place] [facility] REFERRAL- REQUEST/RESPONSE 2022-06-30 05:01:00 Doctor Unassigned, [place] [facility] Encounters Start Date/Time End Date/Time Encounter Type Admission Type Attending Clinicians Care Facility Care Department Encounter ID Source 2021-12-24 08:49:20 Outpatient R NITIN CHAPMAN [facility] S[facility] [id number] [facility] 2021-08-23 03:15:56 Emergency [facility] [id number] [facility] 2021-08-21 18:49:36 Emergency [facility] [id number] [facility] 2021-08-21 09:44:00 Outpatient R CHAPMAN NITIN [facility] DSU [id number] [facility] 2023-10-12 13:25:11 2023-10-12 23:59:00 Outpatient R RADIOLOGY [facility] [id number] [facility] 2023-10-12 13:25:11 2023-10-12 23:59:00 Hospital Encounter Radiology [facility] 1..840.114 350.1.13.10 4.2.7.2.686 [id number] [facility] 2023-09-04 10:00:00 2023-09-04 10:15:00 Dice Table Person Visit Pob, Adc Lab Main Srinivasa Wagner [facility] PROFESS[facility] 1.2.840.114 350.1.13.10 4.2.7.2.686 [id number] [facility] 2023-09-04 10:00:00 2023-09-04 10:00:00 Outpatient R SRINIVASA WAGNER [facility] [id number] [facility] 2023-09-04 00:00:00 2023-09-04 00:00:00 Orders Only Doctor Unassigned, [place] [facility] 1..840.114 350.1.13.10 4.2.7.2.686 [id number] [facility] 2023-07-24 12:26:00 2023-07-24 15:30:00 Emergency EM Nitin Meneses [facility] [id number] [facility] 2023-07-24 12:26:00 2023-07-24 15:30:00 Emergency EM Nitin Meneses [facility] [id number] [facility] 2023-05-27 18:18:00 2023-05-28 00:09:00 Emergency EM Daniel Galvez [facility] [id number] [facility] 2022-12-20 09:36:15 2022-12-20 23:59:00 Hospital Encounter Richie Young [facility] 1..114 350.1.13.10 4.2.7.2.686 [id number] [facility] 2022-11-14 00:00:00 2022-11-14 00:00:00 Orders Only Doctor Unassigned, [place] [facility] 1.114 350.1.13.10 4.2.7.2.686 [id number] [facility] 2022-09-30 09:30:00 2022-09-30 09:30:00 Outpatient PHOENIX DIALLO SHIORRey [facility] [id number] [facility] 2022-08-30 14:30:00 2022-08-30 14:30:00 Outpatient PHOENIX DIALLO SHIWAN [facility] [id number] [facility] 2022-08-01 09:30:00 2022-08-01 09:30:00 Outpatient PHOENIX DIALLO SHIWAN [facility] [id number] [facility] 2022-07-21 00:00:00 2022-07-21 00:00:00 Patient Secure Msg Doctor Unassigned, [place] [facility] 1.114 350.1.13.10 4.2.7.2.686 [id number] [facility] 2022-07-19 10:15:00 2022-07-19 10:30:00 Dice Table Person Visit 2, Adc Lab Srinivasa Wagner [facility] 1..114 350.1.13.10 4.2.7.2.686 [id number] [facility] 2022-07-19 10:15:00 2022-07-19 10:15:00 Outpatient R SRINIVASA WAGNER [facility] [id number] [facility] 2022-07-15 15:37:00 2022-07-15 15:37:00 Outpatient Elizabeth Jones [facility] [id number] [facility] 2022-07-01 09:30:00 2022-07-01 10:13:29 Outpatient R PHOENIX GILL SHIORRey [facility] [id number] [facility] 2022-07-01 09:30:00 2022-07-01 10:13:29 Office Visit [place] [facility] 1..84.114 350.1.13.10 4.2.7.2.686 [id number] [facility] 2022-06-30 00:00:00 2022-06-30 00:00:00 Orders Only Doctor Unassigned, [place] [facility] 1.840.114 350.1.13.10 4.2.7.2.686 [id number] [facility] 2022-06-17 15:40:00 2022-06-17 23:59:00 Hospital Encounter Nitin Chapman [facility] ..840.114 350.1.13.10 4.2.7.2.686 [id number] [facility] 2022-06-17 14:00:00 2022-06-17 16:21:23 Office Visit Nitin Chapman [facility] 1..114 350.1.13.10 4.2.7.2.686 [id number] [facility] 2022-06-17 14:48:57 2022-06-17 15:39:00 Outpatient R NITIN CHAPMAN [facility] [id number] [facility] 2022-06-17 14:48:57 2022-06-17 15:39:00 Outpatient R NITIN CHAPMAN [facility] [id number] [facility] 2022-06-17 14:48:57 2022-06-17 15:39:00 Hospital Encounter Nitin Chapman [facility] .2.840.114 350.1.13.10 4.2.7.2.686 [id number] [facility] 2022-06-13 13:40:00 2022-06-13 13:40:00 Outpatient R NITIN CHAPMAN [facility] [id number] [facility] 2022-06-13 13:40:00 2022-06-13 13:40:00 Outpatient R NITIN CHAPMAN [facility] [id number] [facility] 2022-05-17 13:45:00 2022-05-17 13:45:00 Outpatient R REJI REESE [facility] [id number] [facility] 2022-04-29 13:00:00 2022-04-29 13:35:15 Outpatient R NITIN CHAPMAN [facility] [id number] [facility] 2022-04-29 13:00:00 2022-04-29 13:35:15 Office Visit Nitin Chapmna [facility] .2.840.114 350.1.13.10 4.2.7.2.686 [id number] [facility] 2022-04-22 14:00:00 2022-04-22 14:00:00 Outpatient R NITIN CHAPMAN [facility] [id number] [facility] 2022-04-19 13:20:00 2022-04-19 13:20:00 Outpatient R ESTEFANIA CARVAJAL [facility] [id number] [facility] 2022-04-15 00:00:00 2022-04-15 00:00:00 Telephone Nitin Chapman [facility] 1.2.840.114 350.1.13.10 4.2.7.2.686 [id number] [facility] 2022-04-14 00:00:00 2022-04-14 00:00:00 Telephone Estefania Carvajal [facility] 1.2.840.114 350.1.13.10 4.2.7.2.686 [id number] [facility] 2022-04-13 10:20:00 2022-04-13 10:20:00 Outpatient ESTEFANIA REINOSO [facility] [id number] [facility] 2022-04-12 00:00:00 2022-04-12 00:00:00 Telephone Nitin Chapman [facility] [place] [facility] 1.2.840.114 350.1.13.10 4.2.7.2.686 [id number] [facility] 2022-04-11 00:00:00 2022-04-11 00:00:00 Telephone Nitin Chapman [facility] [place] 1.2.840.114 350.1.13.10 4.2.7.2.686 [id number] [facility] 2022-04-11 00:00:00 2022-04-11 00:00:00 Telephone Dez Leon [facility] 1.2.840.114 350.1.13.10 4.2.7.2.686 [id number] [facility] 2022-04-08 10:30:00 2022-04-08 10:30:00 Outpatient NITIN RIOS [facility] [id number] [facility] 2022-04-08 10:30:00 2022-04-08 10:30:00 Outpatient NITIN ROIS [facility] [id number] [facility] 2022-03-30 00:00:00 2022-03-30 00:00:00 Telephone Nitin Chapman [facility] 1.2840.114 350.1.13.10 4.2.7.2.686 [id number] [facility] 2022-03-18 14:30:00 2022-03-18 15:20:51 Outpatient R NITIN CHAPMAN [facility] [id number] [facility] 2022-03-18 14:30:00 2022-03-18 15:20:51 Office Visit Nitin Chapman [facility] 1.2840.114 350.1.13.10 4.2.7.2.686 [id number] [facility] 2022-03-18 08:40:00 2022-03-18 08:40:00 Outpatient ESTEFANIA REINOSO [facility] [id number] [facility] 2022-03-18 00:00:00 2022-03-18 00:00:00 Telephone Estefania Carvajal [facility] 1.2840.114 350.1.13.10 4.2.7.2.686 [id number] [facility] 2022-03-18 00:00:00 2022-03-18 00:00:00 Telephone Nitin Chapman [facility] 1.2840.114 350.1.13.10 4.2.7.2.686 [id number] [facility] 2022-03-10 09:26:00 2022-03-10 18:20:00 Outpatient R NITIN CHAPMAN [facility] [id number] [facility] 2022-03-10 09:26:00 2022-03-10 18:20:00 Hospital Encounter Nitin Chapman [facility] ([facility] 1.2840.114 350.1.13.10 4.2.7.2.686 [id number] [facility] 2022-03-10 11:47:00 2022-03-10 16:07:00 Surgery Nitin Chapman [facility] 1.2.840.114 350.1.13.10 4.2.7.2.686 [id number] [facility] 2022-03-10 11:47:00 2022-03-10 11:47:00 Outpatient R NITIN CHAPMAN [facility] [id number] [facility] 2022-03-10 00:00:00 2022-03-10 00:00:00 Telephone Nitin Chapman [facility] [place] [facility] 1.2.840.114 350.1.13.10 4.2.7.2.686 [id number] [facility] 2022-03-09 00:00:00 2022-03-09 00:00:00 Telephone Nitin Chapman [facility] 1.2.840.114 350.1.13.10 4.2.7.2.686 [id number] [facility] 2022-03-09 00:00:00 2022-03-09 00:00:00 Letter (Out) Nitin Chapman [facility] [place] [facility] 1.2.840.114 350.1.13.10 4.2.7.2.686 [id number] [facility] 2022-03-07 12:30:00 2022-03-07 12:30:00 Outpatient R NITIN CHAPMAN [facility] [id number] [facility] 2022-03-03 15:22:00 2022-03-03 15:22:00 Outpatient R NITIN CHAPMAN [facility] [id number] [facility] 2022-03-03 00:00:00 2022-03-03 00:00:00 Telephone Nitin Chapman [facility] 840.114 350.1.13.10 4.2.7.2.686 [id number] [facility] 2022-02-28 00:00:00 2022-02-28 00:00:00 Telephone Nitin Chapman [facility] [place] 07[address].840.114 350.1.13.10 4.2.7.2.686 [id number] [facility] 2022-02-23 00:00:00 2022-02-23 00:00:00 Patient Secure Msg Doctor Unassigned, [place] [facility] AT [address]840.114 350.1.13.10 4.2.7.2.686 [id number] [facility] 2021-12-21 00:00:00 2021-12-21 00:00:00 Patient Secure Msg Doctor Unassigned, [place] [facility] 840.114 350.1.13.10 4.2.7.2.686 [id number] 198 [id number] [facility] 2021-12-13 09:20:00 2021-12-13 09:20:00 Outpatient R NITIN CHAPMAN [facility] [id number] [facility] 2021-12-13 09:20:00 2021-12-13 09:20:00 Outpatient R NITIN CHAPMAN [facility] [id number] [facility] 2021-12-13 09:20:00 2021-12-13 09:20:00 Outpatient R NITIN CHAPMAN [facility] [id number] [facility] 2021-12-06 11:00:00 2021-12-06 11:49:45 Office Visit Nitin Chapman [facility] [place] [facility] 840.114 350.1.13.10 4.2.7.2.686 [id number] [facility] 2021-12-06 11:00:00 2021-12-06 11:49:45 Outpatient R NITIN CHAPMAN [facility] [id number] [facility] 2021-12-06 11:00:00 2021-12-06 11:00:00 Outpatient R NITIN CHAPMAN [facility] [id number] [facility] 2021-12-06 11:00:00 2021-12-06 11:00:00 Outpatient R NITIN CHAPMAN [facility] [id number] [facility] 2021-12-06 00:00:00 2021-12-06 00:00:00 Orders Only Doctor Unassigned, [place] [facility] 1..840.114 350.1.13.10 4.2.7.2.686 [id number] [facility] 2021-11-22 12:54:53 2021-11-22 23:59:00 Outpatient R NITIN CHAPMAN [facility] [id number] [facility] 2021-11-22 12:54:53 2021-11-22 23:59:00 Hospital Encounter Nitin Chapman [facility] 1..840.114 350.1.13.10 4.2.7.2.686 [id number] [facility] 2021-11-15 14:10:00 2021-11-15 14:10:00 Office Visit Nitin Chapman [facility] 1..840.114 350.1.13.10 4.2.7.2.686 [id number] [facility] 2021-11-15 14:10:00 2021-11-15 13:46:55 Outpatient NITIN RIOS [facility] [id number] [facility] 2021-11-15 14:10:00 2021-11-15 13:46:55 Outpatient NITIN RIOS [facility] [id number] [facility] 2021-10-13 13:50:00 2021-10-13 13:50:00 Outpatient NITIN RIOS [facility] [id number] [facility] 2021-08-20 16:20:00 2021-08-20 16:20:00 Outpatient NITIN RIOS [facility] [id number] [facility] 2021-08-16 15:10:00 2021-08-16 15:10:00 Outpatient NITIN RIOS [facility] [id number] [facility] 2021-05-31 16:00:00 2021-05-31 16:00:00 Outpatient NITIN RIOS [facility] [id number] [facility] 2021-05-28 00:00:00 2021-05-28 00:00:00 Patient Secure Msg Doctor Unassigned, [place] [facility] [place] [facility] .840.114 350.1.13.10 4.2.7.2.686 [id number] [facility] 2021-05-15 09:20:00 2021-05-15 09:20:00 Outpatient WILLIAMS MORA [facility] [id number] [facility] 2021-04-14 12:52:00 2021-04-14 15:38:00 Emergency [facility] ([facility]) .840.114 350.1.13.10 4.2.7.2.686 [id number] [facility] 2021-04-14 12:52:00 2021-04-14 15:38:00 Emergency [facility] ([facility]) 1.840.114 350.1.13.10 4.2.7.2.686 [id number] 2021-03-04 00:00:00 2021-03-04 00:00:00 Nitin Sesay [facility] [place] [facility] 1.2.840.114 350.1.13.10 4.2.7.2.686 [id number] [facility] 2021-03-04 00:00:00 2021-03-04 00:00:00 Nitin Sesay [facility] 1.2.840.114 350.1.13.10 4.2.7.2.686 [id number] 2021-02-26 14:20:00 2021-02-26 14:20:00 Outpatient NITIN RIOS [facility] [id number] [facility] 2020-12-23 14:00:00 2020-12-23 14:00:00 Outpatient REJI PARNELL [facility] [id number] [facility] 2020-12-23 10:30:34 2020-12-23 11:15:04 Ancillary Visit Stephania Meneses Craig L [facility] 1.2.840.114 350.1.13.10 4.2.7.2.686 [id number] [facility] 2020-12-23 10:30:34 2020-12-23 11:15:04 Ancillary Visit Stephania Meneses [facility] 1.2.840.114 350.1.13.10 4.2.7.2.686 [id number] 2020-12-16 13:02:06 2020-12-18 08:04:55 Ancillary Visit Katie Camilo Brian A [facility] nal Building 1.2.840.114 350.1.13.10 4.2.7.2.686 [id number] [facility] 2020-12-16 13:02:06 2020-12-18 08:04:55 Ancillary Visit Katie Camilo [facility] 1.2.840.114 350.1.13.10 4.2.7.2.686 [id number] 2020-12-16 13:00:00 2020-12-16 13:00:00 Outpatient R NITIN CHAPMAN [facility] [id number] [facility] 2020-12-14 14:10:00 2020-12-14 14:10:00 Outpatient R NITIN CHAPMAN [facility] [id number] [facility] 2020-12-14 13:22:18 2020-12-14 13:52:43 Office Visit Nitin Chapman [facility] ..840.114 350.1.13.10 4.2.7.2.686 [id number] [facility] 2020-12-14 13:22:18 2020-12-14 13:52:43 Office Visit Nitin Chapman [facility] ..840.114 350.1.13.10 4.2.7.2.686 [id number] 2020-12-07 14:00:00 2020-12-07 14:00:00 Outpatient R [facility] [id number] [facility] 2020-12-06 13:40:00 2020-12-06 13:40:00 Outpatient Demetra GORDON SONAL [facility] [id number] [facility] 2020-12-06 10:37:06 2020-12-06 10:57:06 Laboratory Only Lab, Adc Fam Pob I [facility] Office [facility] 10.24.840.114 350.1.13.10 4.2.7.2.686 [id number] [facility] 2020-11-30 13:50:00 2020-11-30 13:50:00 Outpatient R NITIN CHAPMAN [facility] [id number] [facility] 2020-11-25 14:45:00 2020-11-25 14:45:00 Outpatient R SRINIVASA WAGNER [facility] [id number] [facility] 2020-11-25 14:15:42 2020-11-25 14:30:42 Laboratory Only Only, [facility] Test Srinivasa Wagner [facility] 1..114 350.1.13.10 4.2.7.2.686 [id number] [facility] 2020-11-19 00:00:00 2020-11-19 00:00:00 Telephone Nitin Chapman [facility] 1..114 350.1.13.10 4.2.7.2.686 [id number] [facility] 2020-11-13 10:07:00 2020-11-13 12:16:00 Emergency Mitchell Katja Demetra [facility] 1..114 350.1.13.10 4.2.7.2.686 [id number] [facility] 2020-11-12 10:30:00 2020-11-12 10:30:00 Outpatient R [facility] [id number] [facility] 2020-11-12 10:06:27 2020-11-12 10:21:27 Laboratory Only Only, [facility] Test Bernard [facility] 1.2114 350.1.13.10 4.2.7.2.686 [id number] [facility] 2020-11-02 12:40:00 2020-11-02 12:40:00 Outpatient R GREG SPEARS [facility] [id number] [facility] 2020-11-02 08:47:43 2020-11-02 09:27:43 Ancillary Visit Shena Mullen Craig L [facility] Professio [facility] 1.114 350.1.13.10 4.2.7.2.686 [id number] [facility] 2020-10-28 13:05:06 2020-10-28 13:45:06 Ancillary Visit Stephania Meneses Craig L [facility] 1.84.114 350.1.13.10 4.2.7.2.686 [id number] [facility] 2020-10-28 13:00:00 2020-10-28 13:00:00 Outpatient R [facility] [id number] [facility] 2020-10-26 14:38:19 2020-10-26 15:18:19 Ancillary Visit Stephan Meneses Craig L [facility] 1.84.114 350.1.13.10 4.2.7.2.686 [id number] [facility] 2020-10-20 13:00:00 2020-10-20 13:00:00 Outpatient R [facility] [id number] [facility] 2020-10-19 13:10:00 2020-10-19 13:10:00 Outpatient R NITIN CHAPMAN [facility] [id number] [facility] 2020-10-19 12:34:13 2020-10-19 13:09:39 Office Visit Nitin Chapman [facility] 1.84.114 350.1.13.10 4.2.7.2.686 [id number] [facility] 2020-10-14 14:18:31 2020-10-14 15:17:48 Ancillary Visit Katie Camilo Brian A [facility] 1.84.114 350.1.13.10 4.2.7.2.686 [id number] [facility] 2020-10-13 13:03:22 2020-10-13 13:51:39 Ancillary Visit Nicole Wilson Brian A [facility] 1.114 350.1.13.10 4.2.7.2.686 [id number] [facility] 2020-10-12 13:01:56 2020-10-12 13:44:04 Ancillary Visit Nicole Wilson Craig L [facility] 1.114 350.1.13.10 4.2.7.2.686 [id number] [facility] 2020-10-12 13:00:00 2020-10-12 13:00:00 Outpatient REJI PARNELL [facility] [id number] [facility] 2020-10-08 07:19:00 2020-10-08 08:18:00 [facility] 1.114 350.1.13.10 4.2.7.2.686 [id number] [facility] 2020-10-08 00:00:00 2020-10-08 00:00:00 Orders Only Doctor Unassigned, [place] [facility] 1.114 350.1.13.10 4.2.7.2.686 [id number] [facility] 2020-10-07 08:00:00 2020-10-07 08:00:00 Outpatient NITIN RIOS [facility] [id number] [facility] 2020-10-07 07:40:55 2020-10-07 07:55:55 Laboratory Only Only, Adc Nitin Booth [facility] 1..114 350.1.13.10 4.2.7.2.686 [id number] [facility] 2020-09-11 13:40:00 2020-09-11 13:40:00 Outpatient NITIN RIOS [facility] [id number] [facility] 2020-09-11 13:02:05 2020-09-11 13:38:04 Office Visit Nitin Chapman [facility] 1.2840.114 350.1.13.10 4.2.7.2.686 [id number] [facility] 2020-07-07 13:52:27 2020-07-07 14:32:27 Ancillary Visit Nicole Wilson Brian A [facility] 1.2840.114 350.1.13.10 4.2.7.2.686 [id number] [facility] 2020-07-03 14:39:59 2020-07-04 08:12:04 Office Visit Nitin Chapman [facility] 1.2840.114 350.1.13.10 4.2.7.2.686 [id number] [facility] 2020-07-03 15:10:00 2020-07-03 15:10:00 Outpatient R NITIN CHAPMAN [facility] [id number] [facility] 2020-07-01 14:00:27 2020-07-01 14:40:27 Ancillary Visit Stephan Meneses Craig L [facility] 1.284.114 350.1.13.10 4.2.7.2.686 [id number] [facility] 2020-06-26 08:00:00 2020-06-26 08:00:00 Outpatient R [facility] [id number] [facility] 2020-06-25 07:53:29 2020-06-25 08:33:29 Ancillary Visit Stephania Meneses Brian A [facility] nal Building 1.2840.114 350.1.13.10 4.2.7.2.686 [id number] [facility] 2020-06-04 09:20:00 2020-06-04 09:20:00 Outpatient R [facility] [id number] [facility] 2020-06-01 10:00:00 2020-06-01 10:00:00 Outpatient R REJI REESE [facility] [id number] [facility] 2020-05-22 10:31:46 2020-05-22 11:04:52 Ancillary Visit Stephania Meneses Craig [facility] 1.2.840.114 350.1.13.10 4.2.7.2.686 [id number] [facility] 2020-05-15 10:51:41 2020-05-15 11:31:41 Ancillary Visit [facility] 1.2.840.114 350.1.13.10 4.2.7.2.686 [id number] [facility] 2020-05-07 14:22:33 2020-05-07 15:02:33 Ancillary Visit [facility] 1.2.840.114 350.1.13.10 4.2.7.2.686 [id number] [facility] 2020-05-04 16:17:10 2020-05-04 16:46:02 Office Visit Nitin Chapman [facility] 1.2.840.114 350.1.13.10 4.2.7.2.686 [id number] [facility] 2020-05-04 16:30:00 2020-05-04 16:30:00 Outpatient NITIN RIOS [facility] [id number] [facility] 2020-05-04 16:30:00 2020-05-04 16:30:00 Outpatient NITIN RIOS [facility] [id number] [facility] 2020-05-01 09:49:34 2020-05-01 10:29:34 Ancillary Visit Katie Camilo Brian A [facility] 1.2.840.114 350.1.13.10 4.2.7.2.686 [id number] [facility] 2020-04-28 15:03:22 2020-04-28 15:43:22 Ancillary Visit Stephan Meneses Brian A [facility] 1.2.840.114 350.1.13.10 4.2.7.2.686 [id number] [facility] 2020-04-23 16:40:00 2020-04-23 16:40:00 Outpatient R [facility] [id number] [facility] 2020-04-23 11:03:05 2020-04-23 11:43:05 Ancillary Visit Stephan Meneses Craig L [facility] 1.2.840.114 350.1.13.10 4.2.7.2.686 [id number] [facility] 2020-04-21 15:50:55 2020-04-21 16:30:55 Ancillary Visit Stephan Meneses Craig L [facility] 1.2.840.114 350.1.13.10 4.2.7.2.686 [id number] [facility] 2020-04-16 16:05:52 2020-04-16 17:15:45 Ancillary Visit Stephan Meneses Craig L [facility] 1.2.840.114 350.1.13.10 4.2.7.2.686 [id number] [facility] 2020-04-13 16:13:16 2020-04-13 16:53:16 Ancillary Visit Stephan Meneses Craig L [facility] 1.2.840.114 350.1.13.10 4.2.7.2.686 [id number] [facility] 2020-04-08 15:18:49 2020-04-08 15:58:49 Ancillary Visit Stephan Meneses Craig L [facility] 1.2.840.114 350.1.13.10 4.2.7.2.686 [id number] 179 [id number] [facility] 2020-04-07 14:41:39 2020-04-07 14:56:39 Dice Table Person Visit 2, Adc Lab Barry Sheth [facility] 1.2.840.114 350.1.13.10 4.2.7.2.686 [id number] [facility] 2020-04-07 14:30:00 2020-04-07 14:30:00 Outpatient R BARRY SHETH [facility] [id number] [facility] 2020-04-07 00:00:00 2020-04-07 00:00:00 Orders Only Doctor Unassigned, [place] [facility] 1.2.840.114 350.1.13.10 4.2.7.2.686 [id number] [facility] 2020-04-06 16:23:27 2020-04-06 17:03:27 Ancillary Visit Nicole Wilson Craig L [facility] 1.2.840.114 350.1.13.10 4.2.7.2.686 [id number] [facility] 2020-04-03 12:49:48 2020-04-03 13:16:43 Office Visit Nitin Chapman [facility] 1.2.840.114 350.1.13.10 4.2.7.2.686 [id number] [facility] 2020-04-03 13:00:00 2020-04-03 13:00:00 Outpatient R NITIN CHAPMAN [facility] [id number] [facility] 2020-04-03 09:22:56 2020-04-03 10:02:56 Ancillary Visit Katie Camilo Brian A [facility] Professio nal Building 1.2840.114 350.1.13.10 4.2.7.2.686 [id number] [facility] 2020-04-01 08:04:03 2020-04-01 08:44:03 Ancillary Visit Katie Camilo Brian A [facility] Professio nal Building 1.20.114 350.1.13.10 4.2.7.2.686 [id number] [facility] 2020-03-26 14:50:31 2020-03-26 15:50:31 Ancillary Visit Nicole Wilson Craig L [facility] Professio nal Building 1.2.114 350.1.13.10 4.2.7.2.686 [id number] [facility] 2020-03-24 13:00:00 2020-03-24 13:00:00 Outpatient REJI PARNELL [facility] [id number] [facility] 2020-03-20 08:47:06 2020-03-20 09:47:06 Ancillary Visit Katie Camilo [facility] 1.2840.114 350.1.13.10 4.2.7.2.686 [id number] [facility] 2020-03-18 08:36:51 2020-03-18 09:49:54 Office Visit Nitin Chapman [facility] 1.2840.114 350.1.13.10 4.2.7.2.686 [id number] [facility] 2020-03-18 09:40:00 2020-03-18 09:40:00 Outpatient NITIN RIOS [facility] [id number] [facility] 2020-03-17 00:00:00 2020-03-17 00:00:00 Telephone Nicole Wilson [facility] 1.2.840.114 350.1.13.10 4.2.7.2.686 [id number] [facility] 2020-03-13 08:03:58 2020-03-13 09:03:58 Ancillary Visit Nicole Wilson Brian A [facility] 1.2840.114 350.1.13.10 4.2.7.2.686 [id number] [facility] 2020-03-11 10:10:00 2020-03-11 10:10:00 Outpatient NITIN RIOS [facility] [id number] [facility] 2020-03-11 09:10:16 2020-03-11 09:44:44 Office Visit Nitin Chapman [facility] 1.2.840.114 350.1.13.10 4.2.7.2.686 [id number] [facility] 2020-03-10 13:03:15 2020-03-10 14:03:15 Ancillary Visit Stephania Meneses Craig L [facility] 1.2.840.114 350.1.13.10 4.2.7.2.686 [id number] [facility] 2020-03-06 08:46:36 2020-03-06 10:13:24 Ancillary Visit Nitin Alvarez Brian A [facility] 1.2.840.114 350.1.13.10 4.2.7.2.686 [id number] [facility] 2020-03-06 08:20:00 2020-03-06 08:20:00 Outpatient R NITIN CHAPMAN [facility] [id number] [facility] 2020-03-06 00:00:00 2020-03-06 00:00:00 Telephone Nitin Chapman [facility] 1.840.114 350.1.13.10 4.2.7.2.686 [id number] [facility] 2020-03-02 12:03:00 2020-03-03 15:18:00 Outpatient R NITIN CHAPMAN [facility] [id number] [facility] 2020-03-02 12:03:00 2020-03-03 15:18:00 Hospital Encounter Nitin Chapman [facility] 1.2840.114 350.1.13.10 4.2.7.2.686 [id number] [facility] 2020-02-28 07:56:38 2020-02-28 08:14:14 Laboratory Only Only, Adc Test Nitin Chapman [facility] 1.0.114 350.1.13.10 4.2.7.2.686 [id number] [facility] 2020-02-28 08:00:00 2020-02-28 08:00:00 Outpatient R NITIN CHAPMAN [facility] [id number] [facility] 2020-02-28 00:00:00 2020-02-28 00:00:00 Telephone Nitin Chapman [facility] 1.20.114 350.1.13.10 4.2.7.2.686 [id number] [facility] 2020-02-25 00:00:00 2020-02-25 00:00:00 Telephone Dianna Alicia [facility] [facility] 1.0.114 350.1.13.10 4.2.7.2.686 [id number] [facility] 2020-02-05 15:00:00 2020-02-05 15:00:00 Outpatient R NITIN CHAPMAN [facility] [id number] [facility] 2020-01-01 13:39:24 2020-02-04 12:24:54 Office Visit Nitin Chapman [facility] 1.2.840.114 350.1.13.10 4.2.7.2.686 [id number] [facility] 2020-01-07 00:00:00 2020-01-07 00:00:00 Telephone Nitin Chapman [facility] 1.2.840.114 350.1.13.10 4.2.7.2.686 [id number] [facility] 2020-01-01 15:31:56 2020-01-01 23:59:00 Outpatient R NITIN CHAPMAN [facility] [id number] [facility] 2020-01-01 15:31:00 2020-01-01 23:59:00 Hospital Encounter Nitin Chapman [facility] 1.2.840.114 350.1.13.10 4.2.7.2.686 [id number] [facility] 2020-01-01 00:00:00 2020-01-01 00:00:00 Prep For Surgery Yg Holt [facility] 1.2.840.114 350.1.13.10 4.2.7.2.686 [id number] [facility] 2020-01-01 00:00:00 2020-01-01 00:00:00 Letter (Out) Nitin Chapman [facility] 1.2.840.114 350.1.13.10 4.2.7.2.686 [id number] [facility] 2019-12-16 00:00:00 2019-12-16 00:00:00 Letter (Out) Nitin Chapman [facility] 1.2.840.114 350.1.13.10 4.2.7.2.686 [id number] [facility] 2019-12-13 15:04:31 2019-12-13 23:59:00 Outpatient R NITIN CHAPMAN [facility] [id number] [facility] 2019-12-13 15:04:00 2019-12-13 23:59:00 Hospital Encounter Nitin Chapman [facility] 1.2.840.114 350.1.13.10 4.2.7.2.686 [id number] [facility] 2019-11-27 09:47:43 2019-11-27 11:33:01 Office Visit Nitin Chapman [facility] 1.2.840.114 350.1.13.10 4.2.7.2.686 [id number] [facility] 2019-06-13 11:16:36 2019-06-13 23:59:00 Outpatient R LATONIA JAMES [facility] [id number] [facility] Results Test Description Test Time Test Comments Results Result Comments Source XR KNEE 3 VW BILATERAL 2023-09-23 1 20:01:57 HISTORY: Bilateral knee pain. FINDINGS: LEFT KNEE: 4 views of left knee showed no acute fracture or dislocation.Tricompart ment degenerative osteoarthritis noted with slightly narrowedjoint spaces, osteophytes along the articular edges of the bones with smalljoint effusion. The changes of arthritis are more affecting medialcompartment and patellofemoral compartment with subchondral sclerosis isnoted in the weightbearing medial femoral/tibial condyles. Lateralcompartment of knee joint shows relatively minimal degenerative arthritis. RIGHT KNEE: AP, lateral and oblique views of the right knee showedpostoperative changes of total knee replacement. Small area of radiolucenthalo noted between bone and metallic interface over lateral tibial condyle,not strongly suspicious for loosening of the hardware. No otherhardware-related complication appreciated. No acute fracture or dislocationor knee joint effusion detected. CONCLUSIONS:1. Tricompartment degenerative osteoarthritis of left knee with small jointeffusion.2. S/P right knee total replacement. [facility] TROP-I HIGH [id number] 13:26:00* Test Item Value Reference Range Interpretation Comme nts TROP-I HIGH SENSITIVITY (test code = TROPIHS) < 4 ng/L < 51 - The use of serial sampling and testing protocol is a recommended practice.- An elevated troponin level alone is often not sufficient for diagnosis of myocardial infarction.Results of this assay method may be falsely depressed orelevated if patient is taking high doses of Biotin. - XR CHEST 1 [id number] 13:26:00 [facility] 1960 Sex: F Patient Name: KALLIE MCNEAL Unit No: [id number] EXAMS: CPT CODE: [id number] XR CHEST 1 V 70440 Reason: pain EXAM: CHEST ONE VIEW INDICATION: PAIN LOCATION: B2 COMPARISON: None availableTECHNIQUE: AP view of the chest FINDINGS: The heart size is normal. The lungs are clear bilaterally. The pulmonary vasculature is normal. No pneumothorax or pleural effusion is identified. The osseous structures are normal. IMPRESSION: No acute cardiopulmonary process. at 1326 Reported and signed by: Jo Moon MD CC: Nitin Estrada Technologist: RT Eliel Trscrpt Dt/ ([id number] Orig Print D/T: S: 07/24/2023 (3229) [place] [facility] NAME: KALLIE MCNEAL [address] [place] [address] PHYS: Nitin Becerril MD [address] : 1960 AGE: 62 SEX: F [place], [place] [address] LOC: D.PER PHONE #: [phone] EXAM DATE: 07/24/2023 STATUS: REG ER FAX #: RAD NO: DC Dt: PAGE1 Signed Report- XR CHEST 1 [id number] 13:26:00 [facility] : 1960 Sex: F Patient Name: KALLIE MCNEAL Unit No: [id number] EXAMS: CPT CODE: [id number] XR CHEST 1 V 04586 Reason: pain EXAM: CHEST ONE VIEW INDICATION: PAIN LOCATION: B2 COMPARISON: None available TECHNIQUE: AP view of the chest FINDINGS: The heart size is normal. The lungs are clear bilaterally. The pulmonary vasculature is normal. No pneumothorax or pleural effusion is identified. The osseous structures are normal. IMPRESSION: No acute cardiopulmonary process. at 1326 Reported and signed by: Jo Moon MD CC: Nitin Meneses MD Technologist: Yamile Wood, RT Trscrpt Dt/ ([id number] Orig Print D/T: S: 07/24/2023 (2209) [place] [facility] NAME: KALLIE MCNEAL [facility] [address] PHYS: VITA- Nitin Meneses MD [address] : 1960 AGE: 62 SEX: F [place], [place] [address] [facility] [id number] LOC: DConorPER PHONE #: [phone] EXAM DATE: 07/24/2023 STATUS: DEP ER FAX #: RAD NO: DC Dt: PAGE 1 Signed ReportCBC W/AUTO [id number] 13:13:00* Test Item Value Reference Range Interpretation Comme nts WHITE BLOOD CELL (test code = WBC) 7.07 x10 3/uL 4.80-10.80 N RED BLOOD CELL (test code = RBC) 4.61 x10 6/uL 4.2-5.4 N HEMOGLOBIN (test code = HGB) 13.5 G/DL 12.0-16.0 N HEMATOCRIT (test code = HCT) 42.2 % 37-47 N MEAN CELL VOLUME (test code = MCV) 91.5 FL 81-99 N MEAN CELL HGB (test code = MCH) 29.3 PG 27-31 N MEAN CELL HGB CONCENTRATION (test code = MCHC) 32.0 G/DL 33-37 L RED CELL DISTRIBUTION WIDTH (test code = RDW) 14.5 % 11.5-14.5 N PLATELET COUNT (test code = PLT) 224 x10 3/uL 150-450 N MEAN PLATELET VOLUME (test code = MPV) 10.9 FL 7.4-10.4 H NEUTROPHIL % (test code = NT%) 68.0 % 42-86 N LYMPHOCYTE % (test code = LY%) 23.1 % 24-44 L MONOCYTE % (test code = MO%) 7.4 % 0.0-4.0 H EOSINOPHIL % (test code = EO%) 1.4 % 0.0-2.7 N BASOPHIL % (test code = BA%) 0.1 % 0.0-0.5 N NEUTROPHIL # (test code = NT#) 4.81 x10 3/uL 1.8-7.7 N LYMPHOCYTE # (test code = LY#) 1.63 x10 3/uL 1.0-4.8 N MONOCYTE # (test code = MO#) 0.52 x10 3/uL 0.0-0.8 N EOSINOPHIL # (test code = EO#) 0.10 x10 3/uL 0.0-0.5 N BASOPHIL # (test code = BA#) 0.01 x10 3/uL 0.0-0.2 N MANUAL DIFF REQUIRED (test code = MDIFF) AUTODIFF VERIFIED TECH REVIEW Auto Differential verified by tech review of smear. - XR KNEE 1 OR 2 V [id number] 18:49:00 [facility] : 1960 Sex: FPatient Name: KALLIE KING Unit No: [id number] EXAMS: CPT CODE: [id number] XR KNEE 1 OR 2 V LT 87703 Reason: LEFT KNEE PAIN EXAMINATION: - XR KNEE 1 OR 2 V LT LOCATION: H101 HISTORY/INDICATION: LEFT KNEE PAIN COMPARISON: None. VIEWS SUBMITTED: AP and lateral views of the left knee. FINDINGS: There is mild narrowing of the medial compartment with small osteophytes formation. There is small morin llofemoral compartment osteophytes formation. There is no acute fracture or dislocation. There is no joint effusion or significant soft tissue swelling. IMPRESSION: 1. No acute osseous abnormality. 2. Mild osteoarthritis. at 1849 Reported and signed by: Shahnaz Alvarez MD CC: Daniel Galvez MD Technologist: Gwen Chou RT CT Trscrpt Dt/ ([id number] Orig Print D/T: S: 05/27/2023 (1851) [facility] NAME: KALLIE KING [address] [place] [address] PHYS: Daniel Jenkins [address] : 1960 AGE: 62 SEX: F [place], [place] [address] LOC: D.PER PHONE #: [phone] EXAM DATE: 05/27/2023 STATUS: REG ER FAX #: RAD NO: DC Dt: PAGE 1 Signed Report Notes Date/Time Note Provider Source 2023-07-24 15:18:00 [id number]+IAqVkpCIcvw iPUKmA5wZ/DgxHxKtoG3wJehXYk2262-43-56J44:18:00 [facility]OR A [facility] PROVIDER REPORTREPORT#:[id number] REPORT STATUS: SignedDATE:07/24/23 TIME: 1518 PATIENT: KALLIE MCNEAL UNIT #: [id number]#: [id number] ROOM/BED:AGE: 62 SEX: F PCP PHYS: No Primary or Family PhysicianSERVICE AUTHOR: Nitin Meneses MD * ALL edits or amendments must be made on the electronic/computer document * HPI-General Illness Free Text HPI NotesFree Text HPI NotesPatient 59-year-old female with no past medical history comes in complaining of chest discomfort. She says this waxes wanes comes and goes. She states that she is breathing fast as well however she states sometimes she has anxiety GeneralInitial Greet Date/Time 07/24/23 1229 PresentationChief Complaint Chest pain Review of Systems ROS StatementsAll systems rev neg except as marked. Review of SystemsCardiovascularReports: Chest pain. Past Medical History - AdultStated Complaint CHEST PAINAllergiesCoded Allergies:meloxicam (Severe, ANAPHYLAXIS 07/24/23) Home MedicationsReported MedicationsmetFORMIN (GLUCOPHAGE) 500 MG PO BID LISINOPRIL (ZESTRIL) 40 MG PO DAILY PRAVASTATIN (PRAVACHOL) 20 MG PO BEDTIME OXYBUTYNIN (DITROPAN) 5 MG PO BID NEOMY/BACIT/POLY B 3.5MG-400U-10,000U/GM (AUDREY-POLYCIN OPHTH) HYDROCHLOROTHIAZIDE (HYDRODIURIL) 25 MG PO DAILY GABAPENTIN (NEURONTIN) 300 MG PO TID LACTULOSE (LACTULOSE 10 GM/15 ML) Calculated Suicide Risk (nurs) No riskSmoking status for patients 13 years old or older: Never Smoker Physical Exam Vital SignsVital SignsFirst Documented: Result Date Time Pulse Ox 98 07/24 1228 B/P 152/90 07/24 1228 B/P Mean 110 07/24 1228 O2 Delivery Room air 07/24 1228 Temp 97.2 07/24 1228 Pulse 78 07/24 1228 Resp 16 07/24 1228 Last Documented: Result Date Time Pulse Ox 98 07/24 1425 B/P 115/55 07/24 1425 B/P Mean 75 07/24 1425 O2 Delivery Room air 07/24 1425 Pulse 77 07/24 1425 Resp 16 07/24 1330 Temp 97.2 07/24 1228 Review of Vital Signs Reviewed Free Text PE NotesFree Text PE NotesGeneral: AO x 3, no acute distress; well nourished, well developedHEENT: Normal cephalic, atraumatic; Eyes: normal inspection, PERRL; Throat: oropharynx is clearNeck: normal inspection, normal ROM, no lymphadenopathyHeart: RRR, no murmursLungs: clear bilaterally; no wheezing, rales or rhonchi; no respiratory distressAbdomen: soft, non-tender, non-distended; no rigidity or guardingExtremities: no deformity or swelling; pulses intactSkin: no rashNeuro: CN II-XII intact; no focal neuro deficits Interpretation Diagnostics Lab Results InterpretationResultsLaboratory Tests 07/24/23 1238:[Embedded Image Not Available]Laboratory Tests: 07/24 1238 Chemistry Sodium (133 - 145 MMOL/L) 138 Potassium (3.6 - 5.2 MMOL/L) 4.3 Chloride (100 - 108 MMOL/L) 104 Carbon Dioxide (22 - 32 MMOL/L) 23 BUN (6 - 20 MG/DL) 17 Creatinine (0.60 - 1.00 MG/DL) 0.55 L Estimated GFR (MDRD) (45 - 104) 103 Glucose (65 - 99 MG/DL) 94 Calcium (8.7 - 10.5 MG/DL) 10.3 Total Bilirubin (0.0 - 1.0 MG/DL) 0.4 AST (15 - 37 Units/L) 16 ALT (30 - 65 Units/L) 12 L Alkaline Phosphatase (50 - 136 Units/L) 91 Troponin I High Sens (< 51 ng/L) < 4 Total Protein (6.4 - 8.2 G/DL) 7.2 Albumin (3.4 - 5.0 G/DL) 3.5 Globulin (1.5 - 3.8 G/DL) 3.7 Albumin/Globulin Ratio (1.1 - 2.2) 0.9 L Hematology WBC (4.80 - 10.80 x10 3/uL) 7.07 RBC (4.2 - 5.4 x10 6/uL) 4.61 Hgb (12.0 - 16.0 G/DL) 13.5 Hct (37 - 47 %) 42.2 MCV (81 - 99 FL) 91.5 MCH (27 - 31 PG) 29.3 MCHC (33 - 37 G/DL) 32.0 L RDW Coeff of Sebastian (11.5 - 14.5 %) 14.5 Plt Count (150 - 450 x10 3/uL) 224 MPV (7.4 - 10.4 FL) 10.9 H Neut % (Auto) (42 - 86 %) 68.0 Lymph % (Auto) (24 - 44 %) 23.1 L Rains % (Auto) (0.0 - 4.0 %) 7.4 H Eos % (Auto) (0.0 - 2.7 %) 1.4 Baso % (Auto) (0.0 - 0.5 %) 0.1 Eos # (Auto) (0.0 - 0.5 x10 3/uL) 0.10 Baso # (Auto) (0.0 - 0.2 x10 3/uL) 0.01 Absolute Neuts (auto) (1.8 - 7.7 x10 3/uL) 4.81 Absolute Lymphs (auto) (1.0 - 4.8 x10 3/uL) 1.63 Absolute Monos (auto) (0.0 - 0.8 x10 3/uL) 0.52 Add Manual Diff (TECH REVIEW) AUTODIFF VERIFIED Recent Impressions:RADIOLOGY - XR CHEST 1 V 07/24 1309 Report Impression - Status: SIGNED Entered: 07/24/2023 1329 IMPRESSION:No acute cardiopulmonary process. Impression By: Jung - Jo Moon MD ECG #1 InterpretationText/Dict NoteEKG showed normal sinus rhythm no STEMI Re-Evaluation MDM Free Text MDM NotesFree Text MDM NotesPatient's chest pain appears to be noncardiac in origin and she will be referredto her primary care doctor for further evaluation in the meantime she will beginthe medication for anxiety which is most likely, because given her presentation ED CourseMedication(s) OrderedMedication(s) Ordered:Central Nervous System Agents Sig/Matthew Start time Last Medication Dose Route Stop Time Status Admin Morphine Sulfate 4 MG X1ED STA 07/24 1248 DC 07/24 IV 07/24 1249 1259 Gastrointestinal Drugs Sig/Matthew Start time Last Medication Dose Route Stop Time Status Admin Ondansetron HCl 4 MG X1ED STA 07/24 1248 DC 07/24 IV 07/24 1249 1259 Patient Discharge Departure Vital Signs/ConditionVital SignsFirst Documented: Result Date Time Pulse Ox 98 07/24 1228 B/P 152/90 07/24 1228 B/P Mean 110 07/24 1228 O2 Delivery Room air 07/24 1228 Temp 97.2 10 1228 Pulse 78 10 1228 Resp 16 10 1228 Last Documented: Result Date Time Pulse Ox 98 07/24 1425 B/P 115/55 07/24 1425 B/P Mean 75 10 1425 O2 Delivery Room air 07/24 1425 Pulse 77 10 1425 Resp 16 07/24 1330 Temp 97.2 10 1228 All vital signs available at the time of this entry have been reviewed. Clinical ImpressionClinical ImpressionPrimary Impression: Chest painSecondary Impressions: Anxiety Disposition DecisionDischarge )( Discharged to Home Yes )( Time 1520 )( Date 07/24/23 Discharge/Care Plan(Auto) PrescriptionsCurrent Visit ScriptsALPRAZolam (XANAX) 0.5 MG PO Q12H ALPRAZolam (XANAX) 0.5 MG PO Q12H #8 TABS Patient Instructions ED Chest Pain, Noncardiac at 1523RPT #:[id number] OF REPORTEDEmergency department iiuxiz7010-55-62W63:18:00D.[id number] ilable for patient noldLKAWHFGXBPKODM7305-21-90Y95:23:41 [facility] 2023-07-24 12:36:00 [id number] YeYE0DFyoTzzKHXEwfmLZvMBtO5Q4 kdZatBb2PrP3VLGaUJoqF/AK6vb1044-41-47P97:36:03123 [id number] [place], [place] PATIENT NAME: KALLIE MCNEAL ADMIT DATE: 07/24/23ACCOUNT NO: [id number] ROOM NO: AGE: 63 REPORT TYPE: ELECTROCARDIOGRAM SEX: F : 58ADMITTING PHYSICIAN: ATTENDING PHYSICIAN:Nitin Meneses MD Order:[id number] Reason : pain Test Date/Time Stamp:MonJul 24 2023 12:36:02Blood Pressure : / mmHGVent. Rate : 070 BPM Atrial Rate : 070 BPM P-R Int : 192 ms QRS Dur : 076 ms QT Int : 350 ms P-R-T Axes : 071 -43 069 degrees QTc Int : 378 ms Normal sinus rhythmLeft axis deviationAbnormal ECG Confirmed by NITIN MENESES MD ([id number]), science editor CHINYERE DAWN ([id number]) on 33:03:08 PM Referred By: Self Referred Confirmed by:NITIN MENESES MD at [id number] PATIENT NAME: KALLIE MCNEAL .[id number] AVAvailable for patient carkYSYBKEXECNGORC6052-17-14F13:03:44 [facility] 2023-05-27 18:32:00 [id number] 7Rxt6dgIyyJICBmJcblkrAJ09NS9y RUiNqMgiVKzjJgAMRku72LH4+Vk0025-19-39Y94:32:00 [facility]OR [facility] PROVIDER REPORTREPORT#:[id number] REPORT STATUS: SignedDATE:05/27/23 TIME: 1831 PATIENT: KALLIE KING UNIT #: [id number]#: [id number] ROOM/BED:AGE: 62 SEX: F PCP PHYS: Ruby Ge AUTHOR: Daniel Galvez MD * ALL edits or amendments must be made on the electronic/computer document * HPI-Knee Prob/Inj Free Text HPI NotesFree Text HPI Ulfdx96-qcdj-yxu female presenting with atraumatic left knee pain. Has a history of knee replacement on the right side. Has osteoarthritis and osteoporosis. She is normally uses a cane to ambulate. She started have some pain in her left knee just prior to arrival. She has been told she needs a knee replacement on the left side but has not seen orthopedic in some time. Denies any numbness or tingling in her leg. She said her knee dramatically swelled up but now it went down its better. Lastly, she says she has a spot on the skin under her left eyethat has been there for 2 months its not going away. GeneralInitial Greet Date/Time 05/27/231818 PresentationChief Complaint Knee pain LHx Obtained From PatientOnset Occurred ChronicProgression since Onset Gradually worsening Review of Systems ROS StatementsAll systems rev neg except as marked. Basic Review of SystemsBasic ROS EYES: No redness, ENT: No sore throat, RESP: No SOB, CV: No chest pain, GI: No abd pain/vomiting, : No dysuria/frequency, HEM: No bleeding/bruising,PSYCH: NL thought content Past Medical History - AdultStated Complaint KNEEAllergiesCoded Allergies:meloxicam (Severe, THROAT CLOSURE 05/27/23) Smoking status for patients 13 years old or older: Never Smoker Physical Exam Vital SignsVital SignsFirst Documented: Result Date Time Pulse Ox 98 05/27 1819 B/P 150/93 / 1819 B/P Mean 112 05/27 1819 O2 Delivery Room air 05/27 1819 Temp 98.1 05/27 1819 Pulse 83 05/27 1819 Resp 16 05/27 1819 Last Documented: Result Date Time Pulse Ox 98 05/27 181 B/P 150/93 05/27 1819 B/P Mean 112 05/27 1819 O2 Delivery Room air 05/27 1819 Temp 98.1 05/27 1819 Pulse 83 05/27 181 Resp 16 05/27 1819 Review of Vital Signs Reviewed Basic Physical ExamBasic PE GEN: Well appearing/NAD, HEAD: Atraumatic/NC, EYES: PERRL, conj clear, ENT: Membranes moist, NECK: Supple, RESP: No resp distress, CV: Reg rate rhythm, ABD: Soft/non-tender, UP EXT: No gross abnormal, SKIN: No rashes, warm/dry, NEURO: alert oriented, NEURO: gross movement NL, PSYCH: NL thought content Focused PEMS Lower Extrem Text/Dict NotesLeft knee: Skin intact, no abrasions, full range of motion of knee. Knee stableto valgus and varus stretch. Left lower leg compartment soft nontender.Skin Text/Dict NotesSmall black mole under the left eye. Some surrounding discoloration. No ulceration Interpretation Diagnostics Lab Results InterpretationResultsRecent Impressions:RADIOLOGY - XR KNEE 1 OR 2 V LT 05/27 1832 Report Impression - Status: SIGNED Entered: 05/27/20231851 IMPRESSION: 1. No acute osseous abnormality.2. Mild osteoarthritis.Impression By: KeoTH15 - Shahnaz Alvarez MD Re-Evaluation [facility] ED CourseMedication(s) OrderedMedication(s) Ordered:Central Nervous System Agents Sig/Matthew Start time Last Medication Dose Route Stop Time Status Admin Ketorolac 30 MG X1ED STA 05/27 1837 DCr 05/27 Tromethamine IM 05/27 1838 1903 Free Text [facility] NotesFree Text [facility] Tjswq16-wgzq-qmv female with history of osteo arthritis presenting with atraumatic left knee pain. X-ray shows osteoarthritis. Skin was intact. No significant swelling on exam. No large effusion needing of drainage. I recommended conservative therapy and follow-up with orthopedics. She has been told before she needs a left knee replacement. Patient Discharge Departure Vital Signs/ConditionVital SignsFirst Documented: Result Date Time Pulse Ox 98 05/27 1819 B/P 150/93 /05 1819 B/P Mean 112 08/ 1819 O2 Delivery Room air 05/27 1819 Temp 98.1 / 181 Pulse 83 08/ 1819 Resp 16 05/27 1819 Last Documented: Result Date Time Pulse Ox 98 / 1819 B/P 150/93 08/ 1819 B/P Mean 112 08/05 1819 O2 Delivery Room air 05/27 1819 Temp 98.1 / 1819 Pulse 83 / 1819 Resp 16 05/27 1819 All vital signs available at the time of this entry have been reviewed. Condition Stable Clinical ImpressionClinical ImpressionPrimary Impression: Osteoarthritis Disposition DecisionDischarge )( Discharged to Home Yes )( Time 185 )( Date 05/27/23 Discharge/Care PlanPatient Instructions ED OsteoarthritisAdditional InstructionsFollow-up with both providers for your left knee and concern for skin lesion under your left eye.ReferralsProvider Referral: Edilson Silvestre MD Notes: Orthopaedic surgery Address: [address] [place] [address] Provider Referral: Laura Wilson MD Notes: Dermatology Address: [address] [place] [address] [address] [place] [address] Departure FormsWORK/SCHOOL EXCUSE VARIABLE Any Restrictions Off work/school 2 days Discharge NoteI have spoken with the patient and/or caregivers. I have explained the patient'scondition, diagnoses and treatment plan based on the information available to meat this time. I have answered the patient's and/or caregiver's questions and addressed any concerns. The patient and/or caregivers have as good an understanding of the patient's diagnosis, condition and treatment plan as can beexpected at this point. The vital signs have been stable. The patient's condition is stable and appropriate for discharge from the emergency department. The patient will pursue further outpatient evaluation with the primary care physician or other designated or consulting physician as outlined in the discharge instructions. The patient and/or caregivers are agreeable to this planof care and follow-up instructions have been explained in detail. The patient and/or caregivers have received these instructions in written format and have expressed an understanding of the discharge instructions. The patient and/or caregivers are aware that any significant change in condition or worsening of symptoms should prompt an immediate return to this or the closest emergency department or a call to 911. at 1923RPT #:[id number] OF REPORTHCA [facility] department mddksh2133-75-59N40:32:00D.[id number] ilable for patient gddfNWTAPVJGQHQUAL2787-25-40V07:24:14 [facility]
[2024-02-06] MEDS ORDERED: BUPIVACAINE 0.5% PF 10 ML VIAL ONE (14:01)
[2024-02-06] MEDS ORDERED: LIDOCAINE 1% MPF 5 ML VIAL ONE (14:01)
--- NOTE | 2024-02-06 15:16 | RAD REPORT ---
EXAM DESCRIPTION: RAD - Femur Right - 02/06/2024 2:15 pm CLINICAL HISTORY: PAIN COMPARISON: No comparisons TECHNIQUE: Right femur, 2 views. FINDINGS: No fracture is identified. Total knee arthroplasty hardware in satisfactory alignment. The re is no dislocation or periosteal reaction noted. No acute or suspicious bony finding. IMPRESSION: Negative right femur examination.
--- NOTE | 2024-02-06 15:16 | RAD REPORT ---
EXAM DESCRIPTION: RAD - Knee Left 3 View - 02/06/2024 2:15 pm CLINICAL HISTORY: PAIN COMPARISON: No comparisons TECHNIQUE: Left knee, 3 views. FINDINGS: No fracture, dislocation or periosteal reaction. Vrph-uo-lokcvafs tricompartmental osteoar thritic changes with some joint space loss and marginal spurring medially. Mild joint effusion. . No soft tissue abnormality. Clinical concerns for internal derangement or occult bony injury could be further assessed with MR im aging. IMPRESSION: No acute osseus abnormality. Degenerative changes as above.
--- NOTE | 2024-02-06 15:21 | EDPHYS ---
Physician Documentation [facility] Name: Yomaria Mondragon Age: 63 yrs Sex: Female : 1960 Arrival Date: 02/06/2024 Time: 13:27 Bed 13 Private MD: ED Physician Kervin Craft HPI: 02/05 14:35 This 63 yrs old Female presents to ER via Ambulatory with complaints of Fall kb Injury, Hip Pain, Knee Pain, Finger Injury - Swelling. 14:35 Pt is a 63 year old female who presents for redness, swelling and pain to left middle kb finger that started 4 days ago. Also reports bilaterally knee pain and right hip pain that has been ongoing for years, but has been worse since she fell 2 weeks ago. . Historical: - Allergies: 13:42 meloxicam; as6 - PMHx: 13:42 Chronic obstructive lung disease; Depression; Diabetes - NIDDM; Hypertension; multiple as6 shoulder dislocation; - PSHx: 13:42 Right knee shoulder; section; foot; as6 - Immunization history:: Adult Immunizations up to date. - Infectious Disease History:: Denies. - Social history:: Smoking status: Patient denies any tobacco usage or history of. ROS: 14:34 Constitutional: As per HPI kb Exam: 14:33 Constitutional: This is a well developed, well nourished patient who is awake, alert, kb and in no acute distress. Head/Face: Normocephalic, atraumatic. ENT: Moist Mucous membranes Cardiovascular: Regular rate Respiratory: Respirations even and unlabored. No increased work of breathing. Talking in full sentences Abdomen/GI: Soft, non-tender. No distention MS/ Extremity: Pulses equal, no cyanosis. Neurovascular intact. Full, normal range of motion. Neuro: Awake and alert, GCS 15, oriented to person, place, time, and situation. Moves all extremities. Normal gait. 14:33 Skin: abscess, that is small, of the dorsal aspect of distal phalanx of left middle finger, with fluctuance, that is mild, Vital Signs: 13:41 BP 184 / 101; Pulse 78; Resp 16 S; Temp 98.1(TE); Pulse Ox 100% on R/A; Weight 58.97 kg as6 (R); Height 4 ft. 8 in. (R); Pain 10/10; 15:08 BP 150 / 93; Pulse 76; Resp 18; Temp 97.9; Pulse Ox 100% on R/A; ph 13:41 Body Mass Index 29.15 (58.97 kg, 142.24 cm) as6 13:41 Pain Scale: Adult as6 Procedures: 14:34 Nerve block: (digital) of palmar aspect of proximal phalanx of left middle finger kb Medication: Lidocaine 1% without epinephrine Marcaine 0.5%, Amount: 4.5 mls were injected, Effect: the patient has resolution of the pain, Set up for procedure. Performed by Viji HERNANDEZ Patient tolerated well. 15:01 I \T\ D: 18G needle inserted at cuticle, moderate amount of purulent fluid drained. . kb MDM: 13:34 Patient medically screened. kb 14:34 Differential diagnosis: sprain, strain, chronic pain, paronychia, abscess, cellulitis. kb Data reviewed: vital signs, nurses notes. 15:20 Counseling: I had a detailed discussion with the patient and/or guardian regarding the kb historical points, exam findings, and any diagnostic results supporting the discharge/admit diagnosis, radiology results, the need for outpatient follow up, a family practitioner, a orthopedic surgeon, to return to the emergency department if symptoms worsen or persist or if there are any questions or concerns that arise at home. 04 13:41 Order name: Femur Right XRAY; Complete Time: 15:18 kb 02/05 13:41 Order name: Knee Left 3 View XRAY; Complete Time: 15:18 kb Administered Medications: 14:50 Drug: Lidocaine Infiltration (1 %) 1 vials 5 ml Infiltration once; to bedside Volume: 5 ph ml; Route: Infiltration; 14:50 Drug: Bupivacaine Infiltration (0.5 %) 1 vials 10 ml Infiltration once Volume: 10 ml; ph Route: Infiltration; 15:42 Drug: Cephalexin PO 500 mg PO once Route: PO; ph 15:43 Follow up: Response: No adverse reaction ph 15:43 Drug: Trimethoprim-Sulfamethoxazole PO (160 mg-800 mg (DS) 1 tablet PO once Route: PO; ph 15:43 Follow up: Response: Medication administered at discharge. ph Disposition: 15:48 Co-signature as Attending Physician, Kervin Craft MD I reviewed the patient's care rn provided by the Advanced Practice Provider and agree with the diagnosis and treatment plan. Disposition Summary: 02/06/24 15:20 Discharge Ordered Notes: Location: Home kb Condition: Stable kb Diagnosis - Pain in right leg kb - Pain in left knee kb - Cutaneous abscess of left hand - paronychia, middle finger kb Followup: kb - With: Emergency Department - When: As needed - Reason: Worsening of condition Followup: kb - With: Private Physician - When: 2 - 3 days - Reason: Recheck today's complaints, Continuance of care, Re-evaluation by your physician Discharge Instructions: - Discharge Summary Sheet kb - Musculoskeletal Pain kb - Paronychia, [id number] kb Forms: - Medication Reconciliation Form kb - Thank You Letter kb - Antibiotic Education kb - Prescription Opioid Use kb - Patient Portal Instructions kb - Leadership Thank You Letter kb Prescriptions: - Cephalexin 500 mg Oral Capsule - take 1 capsule ORAL route every 8 hours for 10 days; 30 capsule; Refills: 0, kb Product Selection Permitted - Bactrim DS 800-160 mg Oral Tablet - take 1 tablet ORAL route every 12 hours for 10 days; 20 tablet; Refills: 0, kb Product Selection Permitted Signatures: Dispatcher [employer] EDViji Perkins, EXTERMINATOR TERMITE-C EXTERMINATOR TERMITE-Ckb Kervin Craft MD MD rn Hall, Patricia, RN RN Chance Agustin RN RN as6 Corrections: (The following items were deleted from the chart) 13:41 13:41 Knee Left 3 View+RAD.RAD.BRZ ordered. EDMS CAROLINEMS
--- NOTE | 2024-02-06 15:21 | ER ---
Nurse's Notes [facility] Name: Yomaira Mondragon Age: 63 yrs Sex: Female : 1960 Arrival Date: 02/06/2024 Time: 13:27 Bed 13 Private MD: Diagnosis: Pain in right leg;Pain in left knee;Cutaneous abscess of left hand-paronychia, middle finger Presentation: 02/05 13:41 Chief complaint: Patient states: right knee and hip pain x2 weeks and left middle as6 finger pain x4 days. Coronavirus screen: At this time, the client does not indicate any symptoms associated with coronavirus-19. Ebola Screen: No symptoms or risks identified at this time. Initial Sepsis Screen: Does the patient meet any 2 criteria? No. Patient's initial sepsis screen is negative. Does the patient have a suspected source of infection? No. Patient's initial sepsis screen is negative. Risk Assessment: Do you want to hurt yourself or someone else? Patient reports no desire to harm self or others. Onset of symptoms is unknown. 13:41 Acuity: ZAHIRA 3 as6 13:41 Method Of Arrival: Ambulatory as6 Historical: - Allergies: 13:42 meloxicam; as6 - PMHx: 13:42 Chronic obstructive lung disease; Depression; Diabetes - NIDDM; Hypertension; multiple as6 shoulder dislocation; - PSHx: 13:42 Right knee shoulder; section; foot; as6 - Immunization history:: Adult Immunizations up to date. - Infectious Disease History:: Denies. - Social history:: Smoking status: Patient denies any tobacco usage or history of. Screenin:08 [facility] ED Fall Risk Assessment (Adult) History of falling in the last 3 months, ph including since admission No falls in past 3 months (0 pts) Confusion or Disorientation No (0 pts) Intoxicated or Sedated No (0 pts) Impaired Gait No (0 pts) Mobility Assist Device Used No (0 pt) Altered Elimination No (0 pt) Score/Fall Risk Level 0 - 2 = Low Risk Oriented to surroundings, Maintained a safe environment, Provided non-skid footwear, Hourly rounding (assess needs \T\ fall precautionary measures) done. Abuse screen: Denies threats or abuse. Denies injuries from another. Nutritional screening: No deficits noted. Tuberculosis screening: No symptoms or risk factors identified. Assessment: 15:05 General: Appears in no apparent distress. Behavior is calm, cooperative. Pain:. ph 15:06 Pain: Complains of pain in right knee. Pain: Complains of pain in left hand. Neuro: ph Level of Consciousness is awake, alert, obeys commands, Oriented to person, place, time, situation. Cardiovascular: Capillary refill < 3 seconds in bilateral fingers Patient's skin is warm and dry. Derm: Skin is pink, warm \T\ dry. Vital Signs: 13:41 BP 184 / 101; Pulse 78; Resp 16 S; Temp 98.1(TE); Pulse Ox 100% on R/A; Weight 58.97 kg as6 (R); Height 4 ft. 8 in. (R); Pain 10/10; 15:08 BP 150 / 93; Pulse 76; Resp 18; Temp 97.9; Pulse Ox 100% on R/A; ph 13:41 Body Mass Index 29.15 (58.97 kg, 142.24 cm) as6 13:41 Pain Scale: Adult as6 ED Course: 13:31 Patient arrived in ED. mg5 13:34 V[facility] Han [facility]C [facility]. kb 13:34 Kervin Craft MD is Attending Physician. kb 13:34 Devika Ray, TEA is Primary Nurse. ap3 13:42 Triage completed. as6 13:43 Arm band placed on. as6 14:17 Femur Right XRAY In Process Unspecified. EDMS 14:17 Knee Left 3 View XRAY In Process Unspecified. EDMS 15:09 Patient has correct armband on for positive identification. Bed in low position. Call ph light in reach. Side rails up X 1. Pulse ox on. NIBP on. Door closed. Noise minimized. Warm blanket given. 15:09 No provider procedures requiring assistance completed. Patient did not have IV access ph during this emergency room visit. Administered Medications: 14:50 Drug: Lidocaine Infiltration (1 %) 1 vials 5 ml Infiltration once; to bedside Volume: 5 ph ml; Route: Infiltration; 14:50 Drug: Bupivacaine Infiltration (0.5 %) 1 vials 10 ml Infiltration once Volume: 10 ml; ph Route: Infiltration; 15:42 Drug: Cephalexin PO 500 mg PO once Route: PO; ph 15:43 Follow up: Response: No adverse reaction ph 15:43 Drug: Trimethoprim-Sulfamethoxazole PO (160 mg-800 mg (DS) 1 tablet PO once Route: PO; ph 15:43 Follow up: Response: Medication administered at discharge. ph Medication: 15:09 VIS not applicable for this client. ph Outcome: 15:20 Discharge ordered by . linn 15:43 Discharged to home ambulatory, with significant other, ph 15:43 Condition: good 15:43 Discharge instructions given to patient, Instructed on discharge instructions, follow up and referral plans. medication usage, Demonstrated understanding of instructions, follow-up care, medications, Prescriptions given X 2, 15:44 Patient left the ED. Signatures: Dispatcher [employer] EDMS Viji Han, SALES EXEC-C SALES EXEC-Taylor Vela, RN RN Devika Ray RN RN ap3 Chance Shea RN RN as6 Mitzy Dumont 5
[2024-02-06] MEDS ORDERED: CEPHALEXIN 250 MG CAP ONE (15:37)
[2024-02-06] MEDS ORDERED: SMZ./TMP. 800/160 MG TABLET ONE (15:37)
[2024-02-06 19:49] VITALS: BP 150/93; TEMP 97.9; O2SAT 100
== END 2024-02-06 15:44 | disposition home or self-care (01) ==
LOC: ER 13:27
PROC: 0H9GXZZ Drainage of Left Hand Skin, External Approach (ICD-10-PCS; principal; 2024-02-06)
DX: M79.604 Pain in right leg (principal); M25.562 Pain in left knee; L03.012 Cellulitis of left finger; Z88.6 Allergy status to analgesic agent
CPT/HCPCS: 73562; 73552; 64450; 99284; 10060; J2001